=== PATIENT | female | born 1970 | race Caucasian/White ===

== ENCOUNTER → 2017-12-31 | Outpatient (CLI) | payer MEDICAID ==
[2017-12-31 11:29] LABS: ALT 20 U/L (9-52); AST 19 U/L (14-36); Albumin 4.4 g/dL (3.5-5.0); Alkaline Phosphatase 56 U/L (38-126); Anion Gap 8 mmol/L; Blood Urea Nitrogen 18 mg/dL (7-17); C Reactive Protein <5.0 mg/L (<10.0); Calcium 9.4 mg/dL (8.4-10.2); Carbon Dioxide 27 mmol/L (22-30); Chloride 107 mmol/L (98-107); Cholesterol 237 mg/dL (<200); Glucose 86 mg/dL (74-99); HDL Cholesterol 74 mg/dL (40-60); LDL Cholesterol,Calculated 148 mg/dL (0-99); Potassium 4.5 mmol/L (3.5-5.1); Sodium 142 mmol/L (137-145); Total Bilirubin 0.4 mg/dL (0.2-1.3); Total Protein 6.7 g/dL (6.3-8.2); Triglycerides 77 mg/dL (<150)
[2017-12-31 11:46] LABS: Basophils # (A) 0.1 k/uL (0-0.2); Basophils % (A) 1 %; Eosinophils % (A) 1 %; HCT 37.7 % (34.0-46.0); HGB 12.6 gm/dL (11.4-16.0); Lymphocytes # (A) 1.5 k/uL (1.0-4.8); Lymphocytes % (A) 21 %; MCHC 33.3 g/dL (31.0-37.0); MCV 87.1 fL (80.0-100.0); Mean Platelet Volume 7.2; Monocytes # (A) 0.5 k/uL (0-1.0); Monocytes % (A) 7 %; Neutrophils # (A) 4.7 k/uL (1.3-7.7); Neutrophils % (A) 68 %; Platelet Count 377 k/uL (150-450); RBC 4.33 m/uL (3.80-5.40); RDW 13.2 % (11.5-15.5); WBC 6.9 k/uL (3.8-10.6)
[2017-12-31 13:19] LABS: Erythrocyte Sedimentation Rate 5 mm/hr (0-20)
[2017-12-31 16:41] LABS: Cyclic Citrullinated Pep IgG NEGATIVE (NEGATIVE)
[2017-12-31 16:51] LABS: Rheumatoid Factor 5 IU/mL (0-15)
== END | disposition home or self-care (01) ==
LOC: LABWHC1 10:42
PROVIDERS: ATTEND Family Medicine
DX: N95.1 Menopausal and female climacteric states (principal); N76.0 Acute vaginitis; I10 Essential (primary) hypertension; R53.82 Chronic fatigue, unspecified; F17.210 Nicotine dependence, cigarettes, uncomplicated; B96.89 Other specified bacterial agents as the cause of diseases classified elsewhere; Z87.898 Personal history of other specified conditions
CPT/HCPCS: 36415; 80053; 80061; 82607; 84439; 84443; 85025; 85652; 86038; 86140; 86200; 86431

== ENCOUNTER → 2019-01-15 | Outpatient (CLI) | payer MEDICAID ==
[2019-01-15 10:57] LABS: Basophils # (A) 0.1 k/uL (0-0.2); Basophils % (A) 1 %; Eosinophils # (A) 0.2 k/uL (0-0.7); Eosinophils % (A) 3 %; Lymphocytes # (A) 1.6 k/uL (1.0-4.8); Monocytes # (A) 0.4 k/uL (0-1.0); RDW 13.5 % (11.5-15.5)
[2019-01-15 15:05] LABS: HCT 38.4 % (34.0-46.0); HGB 12.5 gm/dL (11.4-16.0); Lymphocytes % (A) 29 %; MCH 29.3 pg (25.0-35.0); MCHC 32.6 g/dL (31.0-37.0); MCV 90.1 fL (80.0-100.0); Mean Platelet Volume 8.3; Monocytes % (A) 7 %; Neutrophils # (A) 3.2 k/uL (1.3-7.7); Neutrophils % (A) 58 %; Platelet Count 400 k/uL (150-450); RBC 4.26 m/uL (3.80-5.40); WBC 5.6 k/uL (3.8-10.6)
[2019-01-15 16:15] LABS: Albumin 4.8 g/dL (3.80-4.90); Albumin/Globulin Ratio 2.82 (1.60-3.17); Anion Gap 3.5 mmol/L (4.00-12.00); Calcium 9.5 mg/dL (8.7-10.3); Carbon Dioxide 27.5 mmol/L (21.6-31.8); Globulin 1.7 g/dL (1.6-3.3); LDL Cholesterol,Calculated 123.4 mg/dL (0.0-131.0); Potassium 4.6 mmol/L (3.5-5.5); Total Bilirubin 0.4 mg/dL (0.3-1.2); Total Protein 6.5 g/dL (6.2-8.2); VLDL Calculation 14.6 mg/dL (5.00-40.00)
[2019-01-15 16:24] LABS: T4, Free (Free Thyroxine) 1.1 ng/dL (0.80-1.80)
== END | disposition home or self-care (01) ==
LOC: LABWHC1 09:59
PROVIDERS: ATTEND Family Medicine
DX: Z00.00 Encounter for general adult medical examination without abnormal findings (principal); I10 Essential (primary) hypertension; K75.9 Inflammatory liver disease, unspecified
CPT/HCPCS: 36415; 80053; 80061; 82672; 83001; 84439; 84443; 85025

== ENCOUNTER 2019-04-08 08:53 | Day surgery (SDC) | payer MEDICAID ==
[2019-04-08 09:17] VITALS: TEMP 97.4
[2019-04-08] MEDS ORDERED: LACTATED RINGERS 1,000 ML IV ONE (09:17)
[2019-04-08] MEDS ORDERED: LIDOCAINE 1% 20 ML VIAL (10MG/ML) FOR IV START INTRADERMA ONE (09:23)
--- NOTE | 2019-04-08 09:31 | P.CONS ---
History of Present Illness - Reason for Consult Consult date: 04/08/19 - Chief Complaint Lower back and right leg pain - History of Present Illness This is a 48-year-old lady with recent history of lower back pain with radiation to the right lower extremity which started after work injury. The pain radiates mostly to the knee level however sometimes it goes to the mid calf area. The patient denies any numbness or tingling in the lower extremity and denies any weakness. The pain gets worse by ambulation and improves by laying down in bed. She was seen by an orthopedic surgeon who recommended lumbar epidural steroid injection at the L5-S1 level and physical therapy. Her lumbar spine MRI shows multiple levels of disc herniation with neural foraminal stenosis mostly at the L3 4 and L5-S1 levels. Review of Systems Cardiovascular: Denies chest pain, Denies shortness of breath Respiratory: Denies cough Gastrointestinal: Denies abdominal pain, Denies diarrhea, Denies nausea, Denies vomiting Musculoskeletal: Denies myalgias Neurological: Reports as per HPI Past Medical History Past Medical History: Hypertension, Liver Disease Additional Past Medical History / Comment(s): migraines, occ.palpitations, hx ulcer, gallstones, pancreatitis, autoimmune hepatitis. lacunar stroke History of Any Multi-Drug Resistant Organisms: None Reported Past Surgical History: Breast Surgery Additional Past Surgical History / Comment(s): exploratory laparoscopy, liver biopsy Past Anesthesia/Blood Transfusion Reactions: Motion Sickness Past Psychological History: Anxiety, Depression Smoking Status: Light tobacco smoker Past Alcohol Use History: None Reported Past Drug Use History: None Reported - Past Family History Mother Family Medical History: Cancer Medications and Allergies Home Medications Medication Instructions Recorded Confirmed Type Losartan Potassium [Cozaar] 100 mg PO DAILY 04/08/19 04/08/19 History PARoxetine HCL [Paxil] 10 mg PO DAILY 04/08/19 04/08/19 History tiZANidine [Zanaflex] 4 mg PO Q6HR PRN 04/08/19 04/08/19 History Allergies Allergy/AdvReac Type Severity Reaction Status Date / Time Tetanus Vaccines and Toxoid Allergy Severe Swelling Verified 04/08/19 09:06 [Tetanus Vaccines & Toxoid] methyldopa [From Aldomet] Allergy effected Verified 04/08/19 09:06 liver methyldopate HCl Allergy effected Verified 04/08/19 09:06 [From Aldomet] liver valsartan Allergy Chest Pain Verified 04/08/19 09:06 lisinopril AdvReac Cough Verified 04/08/19 09:06 Physical Exam Vitals: Vital Signs Temp Pulse Resp BP Pulse Ox 04/08/19 09:16 97.4 F L 78 16 152/91 98 Intake and Output 04/07/19 04/08/19 04/08/19 22:59 06:59 14:59 Other: Weight 67.84 kg - Constitutional General appearance: average body habitus - EENT Eyes: EOMI - Respiratory Respiratory: bilateral: CTA - Cardiovascular Rhythm: regular - Neurologic Muscle strength exam of the lower extremities showed normal and symmetrical strength. Straight leg raising test negative bilaterally. The patient has mild tenderness in the lumbar paravertebral area on the right side. Neurologic: CNII-XII intact - Psychiatric Psychiatric: A&O x's 3, appropriate affect, intact judgment & insight Assessment and Plan Plan: This is a 48-year-old lady with what seems to be right lumbar radiculitis due to neuroforaminal stenosis and lumbar disc herniation. The patient may benefit from getting lumbar epidural steroid injection under fluoroscopic guidance. Patient was referred to our clinic by her orthopedic surgeon to perform lumbar epidural steroid injection at the L5-S1 level under fluoroscopic guidance. The procedure was explained to the patient and her questions were answered. I thank you for the referral.
--- NOTE | 2019-04-08 09:43 | P.PCN ---
Date of Procedure: 04/08/19 Surgeon: Rony Carbajal Pathology: none sent Condition: stable Disposition: PACU Description of Procedure: PREOPERATIVE DIAGNOSIS: 1-Lumbar radiculopathy due to disc herniation and neural foraminal stenosis 2- Lumber Degenerative Disc Diseases. POSTOPERATIVE DIAGNOSIS: Same as above PROCEDURE 1. Lumbar epidural steroid injection under fluoroscopic guidance at the L5-S1 level in the right paramedian approach 2. Lumbar epidurogram. ANESTHESIA: Local with 1% lidocaine; and IV moderate conscious sedation with Versed and fentanyl EBL: Minimal PROCEDURE INDICATION: The patient with low back pain and radiculitis symptoms unresponsive to conservative treatment. Fluoroscopy was used to optimize visualization of the needle placement and to maximize safety. PROCEDURE DESCRIPTION / TECHNIQUE: The patient was seen and identified in the preoperative area. Risks, benefits, complications including but not limited to infections ,bleeding ,allergic reaction to the medications ,nerve damage and not complete pain relief , and alternatives were discussed with the patient. The patient agreed to proceed with the procedure and signed the consent. IV was started, and vital signs were stable. Patient was taken to the OR and time out was completed. The patient was placed in the prone position on procedure table and a pillow was placed under the abdomen to reduce lumbar lordosis. The lumbosacral area was prepped and draped in the usual sterile fashion with ChloraPrep.Patient was closely monitored during the procedure. Conscious sedation was used during the procedure to decrease patients anxiety. Vital signs were monitered during the entire procedure. Using anterior-posterior fluoroscopy, the L5-S1 interlaminar space was identified and the skin over this site was marked and then infiltrated with 1% lidocaine subcutaneously. Subsequently, a 20-gauge Tuohy epidural needle was inserted and advanced toward the epidural space using the Loss of resistance to air technique and guided by AP and lateral fluoroscopy. The correct needle position in the epidural space was verified with the injection of 1 mL of the water soluble contrast dye Omnipaque 180 contrast and observing an excellent epidurogram with the epidural spread of the dye, after negative aspiration for blood and CSF and in the absence of paresthesias. Again after negative aspiration, a 8 ml mixture containing 80 mg of Kenalog and 5 ml of preservative free Normal Saline, and 2 ml of preservative free ropivacaine 0.5% solution was injected and a washout of epidurogram was seen. Needle was withdrawn intact, sk in was cleansed, and bandages were applied. patient tolerated procedure well and was transferred to PACU in stable condition. COMPLICATIONS: None
[2019-04-08] MEDS ORDERED: IV FLUID CONTINUATION 1,000 ML IV ONE (09:48)
[2019-04-08 09:53] VITALS: RESP 18
[2019-04-08 10:24] VITALS: BP 145/89; PULSE 78
--- NOTE | 2019-04-08 11:05 | FL ---
Fluoroscopy HISTORY: Pain 4 seconds fluoroscopy time supplied to the referring clinician. 2 intraoperative C-arm images docume nt the procedure. See dictated report from anesthesia.
== END 2019-04-08 10:24 | disposition home or self-care (01) ==
LOC: ORPAIN 08:53
PROVIDERS: ATTEND Anesthesiology
DX: M51.16 Intervertebral disc disorders with radiculopathy, lumbar region (principal); M48.061 Spinal stenosis, lumbar region without neurogenic claudication; I10 Essential (primary) hypertension; K76.9 Liver disease, unspecified; G43.909 Migraine, unspecified, not intractable, without status migrainosus; F41.9 Anxiety disorder, unspecified; F32.9 Major depressive disorder, single episode, unspecified; K75.4 Autoimmune hepatitis; K85.90 Acute pancreatitis without necrosis or infection, unspecified; R00.2 Palpitations; F17.200 Nicotine dependence, unspecified, uncomplicated; Z86.73 Personal history of transient ischemic attack (TIA), and cerebral infarction without residual deficits; Z79.899 Other long term (current) drug therapy; Z88.7 Allergy status to serum and vaccine; Z88.8 Allergy status to other drugs, medicaments and biological substances; Z80.9 Family history of malignant neoplasm, unspecified
CPT/HCPCS: 62323; 81025; J2250; J3301; J3010; Q9966

== ENCOUNTER 2019-04-22 07:28 | Day surgery (SDC) | payer MEDICAID ==
[2019-04-17 11:09] VITALS: BMI 24.2
[~2019-04-22 07:28] MED LIST: LACTATED RINGERS 1,000 ML IV SCH
[2019-04-22] MEDS ORDERED: LACTATED RINGERS 1,000 ML IV ONE (07:40)
[2019-04-22] MEDS ORDERED: IV FLUID CONTINUATION 1,000 ML IV ONE (08:38)
[2019-04-22 08:42] VITALS: RESP 18
[2019-04-22 08:43] VITALS: TEMP 97.9
--- NOTE | 2019-04-22 08:46 | P.PCN ---
Date of Procedure: 04/22/19 Procedure(s) Performed: 1-Lumbar radiculopathy due to disc herniation and neural foraminal stenosis 2- Lumber Degenerative Disc Diseases. POSTOPERATIVE DIAGNOSIS: Same as above PROCEDURE 1. Lumbar epidural steroid injection under fluoroscopic guidance at the L5-S1 level in the right paramedian approach 2. Lumbar epidurogram. ANESTHESIA: Local with 1% lidocaine; and IV moderate conscious sedation with Versed and fentanyl EBL: Minimal PROCEDURE INDICATION: The patient with low back pain and radiculitis symptoms unresponsive to conservative treatment. Fluoroscopy was used to optimize visualization of the needle placement and to maximize safety. PROCEDURE DESCRIPTION / TECHNIQUE: The patient was seen and identified in the preoperative area. Risks, benefits, complications including but not limited to infections ,bleeding ,allergic reaction to the medications ,nerve damage and not complete pain relief , and alternatives were discussed with the patient. The patient agreed to proceed with the procedure and signed the consent. IV was started, and vital signs were sta ble. Patient was taken to the OR and time out was completed. The patient was placed in the prone position on procedure table and a pillow was placed under the abdomen to reduce lumbar lordosis. The lumbosacral area was prepped and draped in the usual sterile fashion with ChloraPrep.Patient was closely monitored during the procedure. Conscious sedation was used during the procedure to decrease patients anxiety. Vital signs were monitered during the entire procedure. Using anterior-posterior fluoroscopy, the L5-S1 interlaminar space was identified and the skin over this site was marked and then infiltrated with 1% lidocaine subcutaneously. Subsequently, a 20-gauge Tuohy epidural needle was inserted and advanced toward the epidural space using the Loss of resistance to air technique and guided by AP and lateral fluoroscopy. The correct needle position in the epidural space was verified with the injection of 1 mL of the water soluble contrast dye Omnipaque 180 contrast and observing an excellent epidurogram with the epidural spread of the dye, after negative aspiration for blood and CSF and in the absence of paresthesias. Again after negative aspiration, a 8 ml mixture containing 80 mg of Depomedrol and 5 ml of preservative free Normal Saline, and 2 ml of preservative free lidocaine 1% solution was injected and a washout of epidurogram was seen. Needle was withdrawn intact, skin was cleansed, and bandages were applied. patient tolerated procedure well and was transferred to PACU in stable condition. COMPLICATIONS: None
[2019-04-22] MEDS ORDERED: KETOROLAC 30 MG/ML 1 ML VIAL IVP ONE (09:00)
[2019-04-22 09:07] VITALS: BP 168/97; PULSE 83
--- NOTE | 2019-04-22 11:05 | FL ---
EXAMINATION TYPE: FL guided pain mgmt statistic DATE OF EXAM: 04/22/2019 HISTORY: Flouroscopy time 3 seconds of fluoroscopy provided. IMPRESSION: 1. Fluoroscopy time.
== END 2019-04-22 09:25 | disposition home or self-care (01) ==
LOC: ORPAIN 07:28
PROVIDERS: ATTEND Anesthesiology
DX: M51.16 Intervertebral disc disorders with radiculopathy, lumbar region (principal); M48.061 Spinal stenosis, lumbar region without neurogenic claudication; Z88.7 Allergy status to serum and vaccine; Z88.8 Allergy status to other drugs, medicaments and biological substances
CPT/HCPCS: 81025; 62323; J2250; J1030; J1885; Q9966

== ENCOUNTER → 2019-06-02 | Outpatient (CLI) | payer MEDICAID ==
[2019-06-02 13:57] VITALS: BP 152/92; PULSE 78; RESP 16
--- NOTE | 2019-06-02 18:59 | P.PAINPG ---
Subjective Progress Note Date: 06/02/19 This is a follow-up visit for this 48-year-old female with a series of severe low back pain with radiation to the right lower extremity, associated with numbness and tingling sensation patient diagnosed with lumbar radiculopathy, and also she had lumbar herniated disc disease and lumbar foraminal stenosis, patient had the lumbar epidural steroid injection 2 at the L5-S1 levels, patient had significant improvement of her symptoms after the injection, but she continued to have some residual numbness and pain in the right lower extremity she denies any motor or sensory deficit, she denies any fever or night sweats and there is no change in the bowel movement or urination Objective - Vital Signs Vital signs: Vital Signs Temp Pulse 78 06/02/19 13:48 Resp 16 06/02/19 13:48 BP 152/92 06/02/19 13:48 Pulse Ox 99 06/02/19 13:48 Intake & Output 06/01/19 06/02/19 06/02/19 18:59 06:59 18:59 Weight 68.039 kg - Exam Physical Examinations : -Constitutiona : Cooperative , not in acute distress . -HEENT : nech : supple , no Lymphadenopathy , normal thyroid size . eyes : no ptosis , no icterus, no photophobia . ENT : normal of hearing , normal oropharynx , no Thrush . - Respiratory : Chest clear to auscultations Bilaterally , no wheezing , no Rhonchi . - Cardiovascula : regular rate and rhythem , S1 , S2 , no S3 , no S4. - Gastrointestina : abdomen soft no tenderness , bowel sounds , no organomegally . - Genitourinary : Defferred . - neurologic : Cranial nerve II to XII intact , no focal neurological deffecit . -psychatric : alert , oriented X 3 , appropriate affect , intact judgment and insight . -Lymphatic : no Lymphadenopathy . - musculoskeltal : Lumber spine moter stegnth lower extremities ,thigh and legs 5/5 Right side , 5/5 Left side Normal sensation in the lower extremities deep tendon reflexes : normal Knee Jerk , normal ankle Jerk positive lumber facet Loading Test on the right Range of motion of the lumbar spine Flexion 60 degrees, extension 30 degrees strait leg raising test negative bilaterally Fabere test negative bilaterally Assessment and Plan Plan: Assessment and plan= lumbar radiculopathy, lumbar disc herniation , lumbar foraminal stenosis, lumbar spondylosis with lumbar facet arthropathy Status post lumbar epidural steroid injections 2 with good results Patient could benefit from a right-sided transforaminal epidural steroid injection at L5-S1, procedure risk and benefits and alternatives discussed with the patient and she agreed with the preceding Time with Patient: Less than 30 PQRS Measure Charge Sheet Measure #130: Documentation of Current Meds in Medical Chart: Patient's medications documented in chart Measure #226: Tobacco Use: Screen & Cessation Intervention: Pt screened for tobacco use AND intervention given Measure #111: Pneumonia Vaccination: Pneumococcal vaccine administered or previously received Measure #47: Advance Care Plan: Advance care planning discussed & documented, pt chose/unable to give Measure #412: Opioid Treatment Agreement: No documentation of signed opioid treatment agreement Measure #408: Opioid Therapy Follow-up Evaluation: Patient had NO f/u eval minimum every 3 months during opioid therapy Measure #317: Preventitive Care & Scrn High Bld Press & F/U: Pre-hypertensive or hypertensive BP documented, pt will f/u with PCP Measure #128: Body Mass Index (BMI) Screening & Follow-up: BMI documented within normal parameters Measure #131: Pain Assessment & Follow-up: Pain positive & plan documented, Follow-up scheduled Measure #431: Unhealthy Alcohol Use Preventative Care & Scrn: Patient not identified as an unhealthy alcohol user PQRS Narrative: Smoking Status Light tobacco smoker Blood Pressure 152/92 Pain Intensity [Lower Back] 6 Scale Used Numeric (1 - 10) Hx Alcohol Use (MH) Yes Home Medications: Ambulatory Orders Losartan Potassium [Cozaar] 100 mg PO DAILY 04/08/19 PARoxetine HCL [Paxil] 12.5 mg PO DAILY 04/08/19 Ibuprofen/Diphenhydramine Cit [Motrin Pm Caplet] 1 each PO DAILY 04/17/19 Gabapentin [Neurontin] 2 tab PO BID 06/02/19 Controlled Substance Measures - Controlled Substance Measures Is patient prescribed a controlled substance at discharge?: No
== END | disposition home or self-care (01) ==
LOC: PNWHC3 12:57
PROVIDERS: ATTEND Specialist
DX: M48.061 Spinal stenosis, lumbar region without neurogenic claudication (principal); M51.16 Intervertebral disc disorders with radiculopathy, lumbar region; M47.26 Other spondylosis with radiculopathy, lumbar region; M46.96 Unspecified inflammatory spondylopathy, lumbar region; F17.200 Nicotine dependence, unspecified, uncomplicated; Z79.899 Other long term (current) drug therapy
CPT/HCPCS: 99211

== ENCOUNTER 2019-07-02 06:05 | Day surgery (SDC) | payer MEDICAID ==
[2019-06-29 13:21] VITALS: BMI 24.2
[2019-07-02 06:37] VITALS: TEMP 97.9
[2019-07-02] MEDS ORDERED: IV FLUID CONTINUATION 1,000 ML IV ONE (07:27)
--- NOTE | 2019-07-02 07:28 | P.PCN ---
Date of Procedure: 07/02/19 Procedure(s) Performed: PREOPERATIVE DIAGNOSIS:1- Lumbar radiculopathy in right L5-1 distribution. 2- lumbar disc herniation. 3-lumbar spondylosis with lumbar facet arthropathy POSTOPERATIVE DIAGNOSIS: Same as preop diagnosis PROCEDURE 1. Transforaminal epidural steroid injection under fluoroscopic guidance at right L5-S1 . (Fluoroscopy images stored on file in the radiology Department ) 2. Lumbar epidurogram : ANESTHESIA: Local with 1% lidocaine 3 ml , moderate sedation with intravenous Versed 2 mg and fentanyle 100 micrograms EBL: Minimal PROCEDURE INDICATION: The patient with low back pain and radiculopathy symptoms unresponsive to conservative treatment. PROCEDURE DESCRIPTION / TECHNIQUE: The patient was seen and identified in the preoperative area. Risks, benefits, complications, and alternatives were discussed with the patient. The patient agreed to proceed with the procedure and signed the consent. IV was started, and vital signs were stable. Patient was taken to the OR and time out was completed. The patient was placed in the prone position on procedure table and a pillow was placed under the abdomen to reduce lumbar lordosis. The lumbosacral area was prepped and draped in the usual sterile fashion. Critical pause was taken. Vital signs were closely monitored during the procedure. Conscious sedation was used during the procedure to decrease patient s anxiety. Using oblique fluoroscopy, the chin of the `IsaiahYasmany dog at right L5-S1 level was identified, and the skin and deeper tissues just below was localized with 1% lidocaine. Subsequently, a 25-gauge 3.5-inch spinal needle was advanced under a tunneled view fluoroscopic guidance just underneath the chin of the `Maryany dog at the right L5-S1 . Under lateral fluoroscopy, the needle was then advanced to the posterior border of the Right L5-S1 interforaminal space. After negative aspiration of CSF and blood and with no paresthesias, 1 mL Isovue 200 contrast dye was injected excellent epidurogram and outlining of the nerve root Subsequently, 3 mL of block solution containing 80 mg Depo-Medrol and 2 mL of Lidocaine 1% was injected. At the end of the procedure, skin was cleansed, and bandages were applied. COMPLICATIONS:none DISPOSITION / PLANS: The patient was placed in a supine position and transferred to the recovery area in a stable condition for observation. There was no evidence of lower extremity motor or sensory deficit after the procedure. Patient was discharged from the recovery room after meeting discharge criteria. Home discharge instructions were given to the patient by the staff. The patient was reexamined prior to discharge.
[2019-07-02 07:47] VITALS: RESP 16
[2019-07-02 08:07] VITALS: BP 125/74; PULSE 60
--- NOTE | 2019-07-02 11:26 | FL ---
Fluoroscopy HISTORY: Pain 11 seconds fluoroscopy time supplied to the referring clinician. 2 intraoperative C-arm images docum ent the procedure. See dictated report from anesthesia.
== END 2019-07-02 08:08 | disposition home or self-care (01) ==
LOC: ORPAIN 06:05
PROVIDERS: ATTEND Specialist
DX: M51.16 Intervertebral disc disorders with radiculopathy, lumbar region (principal); M47.26 Other spondylosis with radiculopathy, lumbar region; I10 Essential (primary) hypertension; Z88.7 Allergy status to serum and vaccine; Z88.8 Allergy status to other drugs, medicaments and biological substances
CPT/HCPCS: 81025; 64483; J2250; J1030; J3010; Q9966; 99152

== ENCOUNTER → 2019-07-30 | Day surgery (SDC) | payer MEDICAID ==
[2019-07-28 12:53] VITALS: BMI 24.2
[~2019-07-30] MED LIST changes: +IV FLUID CONTINUATION 750 ML IV ONE
[2019-07-30 07:20] VITALS: RESP 18; TEMP 97.5
--- NOTE | 2019-07-30 08:28 | P.PCN ---
Date of Procedure: 07/30/19 Procedure(s) Performed: DESCRIPTION OF PROCEDURE(S): PREOPERATIVE DIAGNOSIS: Lumbar radicular pain POSTOPERATIVE DIAGNOSIS: Lumbar radicular pain PROCEDURE 1. Transforaminal epidural steroid injection under fluoroscopic guidance at right L5-S1 2. Lumbar epidurogram ANESTHESIA: Local with 1% lidocaine 3 ml ; IV sedation with Versed 2 mg and fentanyl 100 micrograms. PROCEDURE INDICATION: The patient with low back pain and radiculopathy symptoms unresponsive to conservative treatment. PROCEDURE DESCRIPTION / TECHNIQUE: The patient was seen and identified in the preoperative area. Risks, benefits, complications, and alternatives were discussed with the patient. The patient agreed to proceed with the procedure and signed the consent. IV was started, and vital signs were stable. Patient was taken to the OR and time out was completed. The patient was placed in the prone position on procedure table and a pillow was placed under the abdomen to reduce lumbar lordosis. The lumbosacral area was prepped and draped in the usual sterile fashion. Vital signs were closely monitored during the procedure. Conscious sedation was used. Using oblique fluoroscopy, the chin of the ``Yasmany dog and the skin and deeper tissues just below was localized with 1% lidocaine. Subsequently, a 22- gauge 3.5-inch spinal needle was advanced under a tunneled view fluoroscopic guidance just underneath the chin of the ``Yasmany dog . Under lateral fluoroscopy, the needle was then advanced to the posterior border of the foramen. After negative aspiration of CSF and blood and with no paresthesias, 1 mL of Omnipaque-240 contrast dye was injected and there was no evidence of intravascular injection. The injectate solution of 80 mg of depomedrol and 2 cc of 1% preservative free lidocaine was injected. The needle was withdrawn intact. At the end of the procedure, skin was cleansed, and bandages were applied. Images were saved to radiology COMPLICATIONS: None COMMENTS: DISPOSITION / PLANS: The patient was placed in a supine position and transferred to the recovery area in a stable condition for observation. There was no evidence of lower extremity motor or sensory deficit after the procedure. Patient was discharged from the recovery room after meeting discharge criteria. Home discharge instructions were given to the patient by the staff. The patient was reexamined prior to discharge. She will be seen in clinic for follow-up
[2019-07-30 08:48] VITALS: BP 151/97; PULSE 77
--- NOTE | 2019-07-30 09:20 | FL ---
EXAMINATION TYPE: FL guided pain mgmt statistic DATE OF EXAM: 07/30/2019 HISTORY: Flouroscopy time 10 seconds of fluoroscopy provided. IMPRESSION: 1. Fluoroscopy time.
== END ==
LOC: ORPAIN 06:52
PROVIDERS: ATTEND Student in an Organized Health Care Education/Training Program
DX: M54.16 Radiculopathy, lumbar region (principal)
CPT/HCPCS: 64483; J2250; J1030; J3010; Q9966

== ENCOUNTER 2019-12-20 09:20 | Emergency (ER) | payer MEDICAID ==
[2019-12-20 09:33] VITALS: RESP 18
[2019-12-20] MEDS ORDERED: SODIUM CHLORIDE 0.9% 1,000 ML IV STA (09:58)
--- NOTE | 2019-12-20 10:18 | ED ---
URI HPI - General Chief Complaint: Upper Respiratory Infection Stated Complaint: Pneumonia Time Seen by Provider: 12/20/19 09:45 Source: patient Mode of arrival: ambulatory Limitations: no limitations - History of Present Illness Initial Comments: Patient is a 49-year-old female presenting to emergency Department with complaints of upper respiratory type symptoms have been ongoing for approximately 3 weeks. Patient states she has completed 2 separate Z-Paks and is currently on day 6 of of Lev[employer]virt[employer] voorhees for possible walking pneumonia. Patient states she's been having intermittent fevers, cough with mild sputum, shortness of breath and severe fatigue. She denies history of asthma. She denies vomiting, diarrhea. She is having regular bowel movements. She denies any urinary complaints. She denies chest pain. She has no other complaints at this time. Upon arrival to the ER, BP is elevated at 180/95, rest of vitals are normal. Patient states she did take her hypertension medication this morning. - Related Data Home Medications Medication Instructions Recorded Confirmed Losartan Potassium [Cozaar] 100 mg PO DAILY 04/08/19 07/30/19 Ibuprofen/Diphenhydramine Cit 1 each PO HS 04/17/19 07/30/19 [Motrin Pm Caplet] Gabapentin [Neurontin] 200 tab PO BID PRN 06/02/19 07/30/19 Soy Isofla/Blk Cohosh/Mag Bark 155 mg PO DAILY 07/28/19 07/28/19 [Estroven 155 mg Capsule] buPROPion XL [Wellbutrin Xl] 150 mg PO DAILY 07/28/19 07/28/19 Previous Rx's Medication Instructions Recorded predniSONE [Deltasone] 20 mg PO BID 5 Days #10 tab 12/20/19 Allergies Allergy/AdvReac Type Severity Reaction Status Date / Time Tetanus Vaccines and Toxoid Allergy Severe Anaphylaxis Verified 07/28/19 12:36 [Tetanus Vaccines & Toxoid] amlodipine [From Norvasc] Allergy hypertension, Verified 07/28/19 12:36 high heart rate methyldopa [From Aldomet] Allergy effected Verified 07/28/19 12:36 liver methyldopate HCl Allergy effected Verified 07/28/19 12:36 [From Aldomet] liver valsartan Allergy Chest Pain Verified 07/28/19 12:36 lisinopril AdvReac Cough Verified 10/08/19 12:36 Review of Systems ROS Statement: Those systems with pertinent positive or pertinent negative responses have been documented in the HPI. ROS Other: All systems not noted in ROS Statement are negative. Past Medical History Past Medical History: CVA/TIA, Hypertension, Liver Disease, Musculoskeletal Disorder, Pneumonia Additional Past Medical History / Comment(s): Hx Migraines, occ palpitations, hx gastric ulcer, gallstones, pancreatitis, autoimmune hepatitis. lacunar stroke noted on scan. Spinal stenosis, 2 herniated discs. History of Any Multi-Drug Resistant Organisms: None Reported Past Surgical History: Breast Surgery, Cholecystectomy Additional Past Surgical History / Comment(s): Exploratory laparoscopy, liver biopsy, Breast Augmentation, PAIN CLINIC PROCEDURES Past Anesthesia/Blood Transfusion Reactions: Motion Sickness Past Psychological History: Anxiety, Depression Smoking Status: Current every day smoker Past Alcohol Use History: None Reported Past Drug Use History: None Reported - Past Family History Mother Family Medical History: Cancer General Exam - General Exam Comments Initial Comments: GENERAL: Well-appearing, well-nourished and in no acute distress. HEAD: Atraumatic, normocephalic. EYES: Pupils equal round and reactive to light, extraocular movements intact, sclera anicteric, conjunctiva are normal. ENT: TMs normal, nares patent, oropharynx clear without exudates. Moist mucous membranes. NECK: Normal range of motion, supple without lymphadenopathy or JVD. LUNGS: Breath sounds clear to auscultation bilaterally and equal. No wheezes rales or rhonchi. HEART: Regular rate and rhythm without murmurs, rubs or gallops. ABDOMEN: Soft, nontender, normoactive bowel sounds. No guarding, no rebound. No masses appreciated. : Deferred EXTREMITIES: Normal range of motion, no pitting or edema. No clubbing or cyanosis. NEUROLOGICAL: Normal speech, normal gait. PSYCH: Normal mood, normal affect. SKIN: Warm, Dry, normal turgor, no rashes or lesions noted. Limitations: no limitations Course Vital Signs 12/20/19 12/20/19 09:30 11:57 Temperature 98.1 F 97.8 F Pulse Rate 50 L 78 Respiratory 18 18 Rate Blood Pressure 180/95 121/78 O2 Sat by Pulse 97 98 Oximetry Medical Decision Making - Medical Decision Making Patient is a 49-year-old female presenting with URI-type symptoms for the last 2-3 weeks. She has completed 2 courses of azithromycin as well as currently on Levaquin, day 5 of 7. Vitals are stable. Exam is unremarkable. Chest x-ray shows no acute abnormalities. Lab work is unremarkable. [place] is negative. Patient was given fluids and a dose of steroids. I recommended her continuing with antibiotics and to follow up with PCP. She will be given prescription for outpatient steroids. She is stable for discharge at this time. She is in agreement with this plan of care. Return parameters were discussed with the patient she verbalized understanding. Case discussed with Dr. Alexander. - Lab Data Result diagrams: 12/20/19 10:12 12/20/19 10:12 Lab Results 12/20/19 12/20/19 12/20/19 Range/Units 10:12 10:12 10:12 WBC 8.8 (3.8-10.6) k/uL RBC 5.00 (3.80-5.40) m/uL Hgb 14.9 (11.4-16.0) gm/dL Hct 44.0 (34.0-46.0) % MCV 87.9 (80.0-100.0) fL MCH 29.7 (25.0-35.0) pg MCHC 33.8 (31.0-37.0) g/dL RDW 12.4 (11.5-15.5) % Plt Count 376 (150-450) k/uL Neutrophils % 73 % Lymphocytes % 19 % Monocytes % 5 % Eosinophils % 1 % Basophils % 1 % Neutrophils # 6.4 (1.3-7.7) k/uL Lymphocytes # 1.6 (1.0-4.8) k/uL Monocytes # 0.4 (0-1.0) k/uL Eosinophils # 0.1 (0-0.7) k/uL Basophils # 0.1 (0-0.2) k/uL Sodium 139 (137-145) mmol/L Potassium 4.5 (3.5-5.1) mmol/L Chloride 107 (98-107) mmol/L Carbon Dioxide 25 (22-30) mmol/L Anion Gap 7 mmol/L BUN 15 (7-17) mg/dL Creatinine 0.93 (0.52-1.04) mg/dL Est GFR (CKD-EPI)AfAm 84 (>60 ml/min/1.73 sqM) Est GFR (CKD-EPI)NonAf 72 (>60 ml/min/1.73 sqM) Glucose 88 (74-99) mg/dL Calcium 9.8 (8.4-10.2) mg/dL Total Bilirubin 0.7 (0.2-1.3) mg/dL AST 23 (14-36) U/L ALT 17 (4-34) U/L Alkaline Phosphatase 99 (38-126) U/L Total Protein 7.2 (6.3-8.2) g/dL Albumin 4.7 (3.5-5.0) g/dL Urine Color Light Yellow Urine Appearance Clear (Clear) Urine pH 6.5 (5.0-8.0) Ur Specific Pandora 1.004 (1.001-1.035) Urine Protein Negative (Negative) Urine Glucose (UA) Negative (Negative) Urine Ketones Negative (Negative) Urine Blood Negative (Negative) Urine Nitrite Negative (Negative) Urine Bilirubin Negative (Negative) Urine Urobilinogen <2.0 (<2.0) mg/dL Ur Leukocyte Esterase Small H (Negative) Urine RBC 1 (0-5) /hpf Urine WBC 3 (0-5) /hpf Ur Squamous Epith Cells 5 H (0-4) /hpf Urine Bacteria Rare H (None) /hpf Urine HCG, Qual (Not Detectd) Heterophile Antibody (Negative) 12/20/19 12/20/19 Range/Units 10:12 10:12 WBC (3.8-10.6) k/uL RBC (3.80-5.40) m/uL Hgb (11.4-16.0) gm/dL Hct (34.0-46.0) % MCV (80.0-100.0) fL MCH (25.0-35.0) pg MCHC (31.0-37.0) g/dL RDW (11.5-15.5) % Plt Count (150-450) k/uL Neutrophils % % Lymphocytes % % Monocytes % % Eosinophils % % Basophils % % Neutrophils # (1.3-7.7) k/uL Lymphocytes # (1.0-4.8) k/uL Monocytes # (0-1.0) k/uL Eosinophils # (0-0.7) k/uL Basophils # (0-0.2) k/uL Sodium (137-145) mmol/L Potassium (3.5-5.1) mmol/L Chloride (98-107) mmol/L Carbon Dioxide (22-30) mmol/L Anion Gap mmol/L BUN (7-17) mg/dL Creatinine (0.52-1.04) mg/dL Est GFR (CKD-EPI)AfAm (>60 ml/min/1.73 sqM) Est GFR (CKD-EPI)NonAf (>60 ml/min/1.73 sqM) Glucose (74-99) mg/dL Calcium (8.4-10.2) mg/dL Total Bilirubin (0.2-1.3) mg/dL AST (14-36) U/L ALT (4-34) U/L Alkaline Phosphatase (38-126) U/L Total Protein (6.3-8.2) g/dL Albumin (3.5-5.0) g/dL Urine Color Urine Appearance (Clear) Urine pH (5.0-8.0) Ur Specific Pand[place] (1.001-1.035) Urine Protein (Negative) Urine Glucose (UA) (Negative) Urine Ketones (Negative) Urine Blood (Negative) Urine Nitrite (Negative) Urine Bilirubin (Negative) Urine Urobilinogen (<2.0) mg/dL Ur Leukocyte Esterase (Negative) Urine RBC (0-5) /hpf Urine WBC (0-5) /hpf Ur Squamous Epith Cells (0-4) /hpf Urine Bacteria (None) /hpf Urine HCG, Qual Not Detected (Not Detectd) Heterophile Antibody Negative (Negative) Disposition Clinical Impression: Upper respiratory tract infection Disposition: HOME SELF-CARE Condition: Stable Instructions (If sedation given, give patient instructions): Upper Respiratory Infection (ED) Additional Instructions: Please return to the Emergency Department if symptoms worsen or any other concerns. Take steroids as prescribed. Follow-up with PCP as symptoms persist. Prescriptions: predniSONE [Deltasone] 20 mg PO BID 5 Days #10 tab Is patient prescribed a controlled substance at d/c from ED?: No Referrals: Bao Lanza MD [Primary Care Provider] - 1-2 days
[2019-12-20 10:26] LABS: Basophils # (A) 0.1 k/uL (0-0.2); Basophils % (A) 1 %; Eosinophils # (A) 0.1 k/uL (0-0.7); Eosinophils % (A) 1 %; HGB 14.9 gm/dL (11.4-16.0); Lymphocytes # (A) 1.6 k/uL (1.0-4.8); Lymphocytes % (A) 19 %; MCH 29.7 pg (25.0-35.0); MCHC 33.8 g/dL (31.0-37.0); MCV 87.9 fL (80.0-100.0); Mean Platelet Volume 7.2; Monocytes # (A) 0.4 k/uL (0-1.0); Monocytes % (A) 5 %; Neutrophils # (A) 6.4 k/uL (1.3-7.7); Neutrophils % (A) 73 %; Platelet Count 376 k/uL (150-450); RDW 12.4 % (11.5-15.5); WBC 8.8 k/uL (3.8-10.6)
[2019-12-20 10:33] LABS: Albumin 4.7 g/dL (3.5-5.0); Appearance,Urine Clear (Clear); Bacteria,Urine Rare /hpf; Bilirubin,Urine Negative (Negative); Blood,Urine Negative (Negative); Calcium 9.8 mg/dL (8.4-10.2); Color,Urine Light Yellow; Glucose,Urine (UA) Negative (Negative); Ketones,Urine Negative (Negative); Leukocyte Esterase,Urine Small (Negative); Nitrite,Urine Negative (Negative); PH, Urine 6.5 (5.0-8.0); Potassium 4.5 mmol/L (3.5-5.1); Protein,Urine Negative (Negative); RBC,Urine 1 /hpf (0-5); Specific Gravity,Urine 1.004 (1.001-1.035); Squamous Epithelial Cell,Urine 5 /hpf (0-4); Total Bilirubin 0.7 mg/dL (0.2-1.3); Total Protein 7.2 g/dL (6.3-8.2); Urobilinogen,Urine <2.0 mg/dL (<2.0); WBC,Urine 3 /hpf (0-5)
--- NOTE | 2019-12-20 10:49 | XR ---
EXAMINATION TYPE: XR chest 2V DATE OF EXAM: 12/20/2019 HISTORY: cough, fatigue. REFERENCE: NONE. FINDINGS: The lungs are overinflated. Nodular opacity in the right upper lobe is believed to represen t the right first rib end. Lungs otherwise clear. Pleural space are clear. The heart is not enlarged. IMPRESSION: COPD.
[2019-12-20] MEDS ORDERED: methylPREDNISolone SOD SUCCI 125 MG/2 ML VIAL IV STA (11:23)
[2019-12-20 12:04] VITALS: BP 121/78; PULSE 78; TEMP 97.8
== END 2019-12-20 12:04 | disposition home or self-care (01) ==
LOC: EC 09:20
DX: I10 Essential (primary) hypertension (principal); J06.9 Acute upper respiratory infection, unspecified; F41.9 Anxiety disorder, unspecified; F32.9 Major depressive disorder, single episode, unspecified; F17.200 Nicotine dependence, unspecified, uncomplicated; Z79.1 Long term (current) use of non-steroidal anti-inflammatories (NSAID); Z79.899 Other long term (current) drug therapy; Z88.7 Allergy status to serum and vaccine; Z88.8 Allergy status to other drugs, medicaments and biological substances; Z86.73 Personal history of transient ischemic attack (TIA), and cerebral infarction without residual deficits; Z87.11 Personal history of peptic ulcer disease; Z87.19 Personal history of other diseases of the digestive system; Z90.49 Acquired absence of other specified parts of digestive tract
CPT/HCPCS: 36415; 80053; 85025; 86308; 81001; 81025; 71046; 96374; 96361; 99285; J2930

== ENCOUNTER 2020-01-04 21:35 | Emergency (ER) | payer MEDICAID ==
[2020-01-04] MEDS ORDERED: SODIUM CHLORIDE 0.9% 1,000 ML IV STA (21:57)
[2020-01-04] MEDS ORDERED: ONDANSETRON 4 MG/2 ML VIAL IVP STA (21:57)
[2020-01-04] MEDS ORDERED: ACETAMINOPHEN TAB 500 MG TAB PO STA (22:17)
--- NOTE | 2020-01-04 22:18 | ED ---
URI HPI - General Chief Complaint: Upper Respiratory Infection Stated Complaint: Vomiting Time Seen by Provider: 01/04/20 21:43 Source: patient Mode of arrival: ambulatory Limitations: no limitations - History of Present Illness Initial Comments: Patient is a 49-year-old female presenting to emergency Department with complaints of acute onset of fever, cough, vomiting. Patient states she was in the ER 2 weeks ago for upper respiratory type symptoms but she did not have a fever. She states she was feeling better for a few days and then the symptoms started today. She denies any sick contacts. She denies any recent travel. She states she has been vomiting on and off throughout the whole day. She did take 600 mg of ibuprofen approximately 2 hours prior to arrival. She denies history of asthma. She has no other complaints at this time. Upon arrival to the ER, patient is febrile to 101.6, tachycardia at 127, 20 respiratory rate, 121/81, 99% on room air. - Related Data Home Medications Medication Instructions Recorded Confirmed Losartan Potassium [Cozaar] 100 mg PO DAILY 04/08/19 07/30/19 Ibuprofen/Diphenhydramine Cit 1 each PO HS 04/17/19 07/30/19 [Motrin Pm Caplet] Gabapentin [Neurontin] 200 tab PO BID PRN 06/02/19 07/30/19 Soy Isofla/Blk Cohosh/Mag Bark 155 mg PO DAILY 07/28/19 07/28/19 [Estroven 155 mg Capsule] buPROPion XL [Wellbutrin Xl] 150 mg PO DAILY 07/28/19 07/28/19 Previous Rx's Medication Instructions Recorded predniSONE [Deltasone] 20 mg PO BID 5 Days #10 tab 12/20/19 Ondansetron Odt [Zofran Odt] 4 mg PO Q8HR PRN #10 tab 01/05/20 Allergies Allergy/AdvReac Type Severity Reaction Status Date / Time Tetanus Vaccines and Toxoid Allergy Severe Anaphylaxis Verified 01/04/20 21:40 [Tetanus Vaccines & Toxoid] amlodipine [From Norvasc] Allergy hypertension, Verified 01/04/20 21:40 high heart rate methyldopa [From Aldomet] Allergy effected Verified 01/04/20 21:40 liver methyldopate HCl Allergy effected Verified 01/04/20 21:40 [From Aldomet] liver valsartan Allergy Chest Pain Verified 01/04/20 21:40 lisinopril AdvReac Cough Verified 01/04/20 21:40 Review of Systems ROS Statement: Those systems with pertinent positive or pertinent negative responses have been documented in the HPI. ROS Other: All systems not noted in ROS Statement are negative. Past Medical History Past Medical History: CVA/TIA, Hypertension, Liver Disease, Musculoskeletal Disorder, Pneumonia Additional Past Medical History / Comment(s): Hx Migraines, occ palpitations, hx gastric ulcer, gallstones, pancreatitis, autoimmune hepatitis. lacunar stroke noted on scan. Spinal stenosis, 2 herniated discs. History of Any Multi-Drug Resistant Organisms: None Reported Past Surgical History: Breast Surgery, Cholecystectomy Additional Past Surgical History / Comment(s): Exploratory laparoscopy, liver biopsy, Breast Augmentation, PAIN CLINIC PROCEDURES Past Anesthesia/Blood Transfusion Reactions: Motion Sickness Past Psychological History: Anxiety, Depression Smoking Status: Current every day smoker Past Alcohol Use History: Occasional Past Drug Use History: None Reported - Past Family History Mother Family Medical History: Cancer General Exam - General Exam Comments Initial Comments: GENERAL: Well-appearing, well-nourished and in no acute distress. HEAD: Atraumatic, normocephalic. EYES: Pupils equal round and reactive to light, extraocular movements intact, sclera anicteric, conjunctiva are normal. ENT: TMs normal, nares patent, oropharynx clear without exudates. Moist mucous me mbranes. NECK: Normal range of motion, supple without lymphadenopathy or JVD. LUNGS: Breath sounds clear to auscultation bilaterally and equal. No wheezes rales or rhonchi. HEART: Tachycardia rate and rhythm without murmurs, rubs or gallops. ABDOMEN: Soft, nontender, normoactive bowel sounds. No guarding, no rebound. No masses appreciated. : Deferred EXTREMITIES: Normal range of motion, no pitting or edema. No clubbing or cyanosis. NEUROLOGICAL: Normal speech, normal gait. PSYCH: Normal mood, normal affect. SKIN: Warm, Dry, normal turgor, no rashes or lesions noted. Limitations: no limitations Course Vital Signs 01/04/20 21:37 Temperature 101.6 F H Pulse Rate 127 H Respiratory 20 Rate Blood Pressure 121/81 O2 Sat by Pulse 99 Oximetry Medical Decision Making - Medical Decision Making Patient is a 49-year-old female presenting with a fever, cough, body aches, as well as vomiting that started today. Patient did arrive febrile 101.6, pulse is 127. Patient's exam is unremarkable, except for tachycardia. No abdominal pain. Influenza is negative. Chest x-ray shows no acute findings. Lab work shows signs of dehydration, no other acute abnormalities. Patient denies having a sore throat. Patient does admit to working at healthcare. Given patient's symptoms as well as possible exposure risk, testing for COVID19 was performed. This test is pending. Patient is in agreement with this plan of care. Patient was given Tylenol in the ER. Her vital signs have stabilized, afebrile, heart rate 92. Patient is stable for discharge. She will be sent home with Zofran as needed for nausea. Patient will continue Tylenol and Motrin for fever control and symptom relief. Patient will self quarantined in her house until the test results. Return parameters were discussed with the patient she verbalized understanding. - Lab Data Result diagrams: 01/04/20 22:41 01/04/20 22:41 Lab Results 01/04/20 01/04/20 01/04/20 Range/Units 21:40 22:41 22:41 WBC 9.7 (3.8-10.6) k/uL RBC 4.50 (3.80-5.40) m/uL Hgb 13.1 (11.4-16.0) gm/dL Hct 39.3 (34.0-46.0) % MCV 87.3 (80.0-100.0) fL MCH 29.2 (25.0-35.0) pg MCHC 33.4 (31.0-37.0) g/dL RDW 12.6 (11.5-15.5) % Plt Count 323 (150-450) k/uL Neutrophils % 82 % Lymphocytes % 9 % Monocytes % 4 % Eosinophils % 3 % Basophils % 0 % Neutrophils # 8.0 H (1.3-7.7) k/uL Lymphocytes # 0.9 L (1.0-4.8) k/uL Monocytes # 0.4 (0-1.0) k/uL Eosinophils # 0.3 (0-0.7) k/uL Basophils # 0.0 (0-0.2) k/uL Sodium 134 L (137-145) mmol/L Potassium 4.1 (3.5-5.1) mmol/L Chloride 104 (98-107) mmol/L Carbon Dioxide 24 (22-30) mmol/L Anion Gap 6 mmol/L BUN 21 H (7-17) mg/dL Creatinine 0.86 (0.52-1.04) mg/dL Est GFR (CKD-EPI)AfAm >90 (>60 ml/min/1.73 sqM) Est GFR (CKD-EPI)NonAf 80 (>60 ml/min/1.73 sqM) Glucose 105 H (74-99) mg/dL Calcium 8.6 (8.4-10.2) mg/dL Total Bilirubin 0.7 (0.2-1.3) mg/dL AST 27 (14-36) U/L ALT 119 H (4-34) U/L Alkaline Phosphatase 117 (38-126) U/L Total Protein 6.3 (6.3-8.2) g/dL Albumin 4.1 (3.5-5.0) g/dL Influenza Type A RNA Not Detected (Not Detectd) Influenza Type B (PCR) Not Detected (Not Detectd) Disposition Clinical Impression: Viral infection Disposition: HOME SELF-CARE Condition: Stable Instructions (If sedation given, give patient instructions): Upper Respiratory Infection (ED) Additional Instructions: Please return to the Emergency Department if symptoms worsen or any other concerns. Continue with Tylenol or Motrin for fever and symptom control. Increase fluid intake. Self quarantine until COVID19 testing is resulted to you. Prescriptions: Ondansetron Odt [Zofran Odt] 4 mg PO Q8HR PRN #10 tab PRN Reason: Nausea Is patient prescribed a controlled substance at d/c from ED?: No Referrals: Bao Lanza MD [Primary Care Provider] - 1-2 days
--- NOTE | 2020-01-04 22:27 | XR ---
EXAMINATION TYPE: XR chest 2V DATE OF EXAM: 01/04/2020 COMPARISON: 12/20/2019 HISTORY: Cough and fever TECHNIQUE: FINDINGS: Heart and mediastinum are normal. Lungs are clear. Diaphragm is normal. Bony thorax appears normal. IMPRESSION: Normal chest. No change.
[2020-01-04 23:00] LABS: Basophils % (A) 0 %; Eosinophils # (A) 0.3 k/uL (0-0.7); Eosinophils % (A) 3 %; HCT 39.3 % (34.0-46.0); HGB 13.1 gm/dL (11.4-16.0); Lymphocytes # (A) 0.9 k/uL (1.0-4.8); Lymphocytes % (A) 9 %; MCH 29.2 pg (25.0-35.0); MCHC 33.4 g/dL (31.0-37.0); MCV 87.3 fL (80.0-100.0); Mean Platelet Volume 7.2; Monocytes # (A) 0.4 k/uL (0-1.0); Monocytes % (A) 4 %; Neutrophils % (A) 82 %; Platelet Count 323 k/uL (150-450); RDW 12.6 % (11.5-15.5); WBC 9.7 k/uL (3.8-10.6)
[2020-01-04 23:10] LABS: ALT 119 U/L (4-34); AST 27 U/L (14-36); African American GFR (CKD) >90 (>60 ml/min/1.73 sqM); Albumin 4.1 g/dL (3.5-5.0); Alkaline Phosphatase 117 U/L (38-126); Anion Gap 6 mmol/L; Blood Urea Nitrogen 21 mg/dL (7-17); Calcium 8.6 mg/dL (8.4-10.2); Carbon Dioxide 24 mmol/L (22-30); Chloride 104 mmol/L (98-107); Glucose 105 mg/dL (74-99); Non-African American GFR(CKD) 80 (>60 ml/min/1.73 sqM); Potassium 4.1 mmol/L (3.5-5.1); Sodium 134 mmol/L (137-145); Total Bilirubin 0.7 mg/dL (0.2-1.3); Total Protein 6.3 g/dL (6.3-8.2)
[2020-01-05] MEDS ORDERED: ONDANSETRON 4 MG ODT STARTER PACK 2 TAB BTL PO STA (00:06)
[2020-01-05 00:12] VITALS: BP 121/78; PULSE 92; RESP 16; TEMP 98.3
== END 2020-01-05 00:12 | disposition home or self-care (01) ==
LOC: EC 21:35
DX: B34.9 Viral infection, unspecified (principal); R00.0 Tachycardia, unspecified; R11.10 Vomiting, unspecified; E86.0 Dehydration; I10 Essential (primary) hypertension; F41.9 Anxiety disorder, unspecified; F32.9 Major depressive disorder, single episode, unspecified; F17.200 Nicotine dependence, unspecified, uncomplicated; Z88.7 Allergy status to serum and vaccine; Z88.8 Allergy status to other drugs, medicaments and biological substances; Z79.1 Long term (current) use of non-steroidal anti-inflammatories (NSAID); Z79.899 Other long term (current) drug therapy; Z86.69 Personal history of other diseases of the nervous system and sense organs; Z86.73 Personal history of transient ischemic attack (TIA), and cerebral infarction without residual deficits
CPT/HCPCS: 36415; 80053; 85025; 87502; 71046; 99284; 96374; 96361; U0002; J2405; S0119

== ENCOUNTER 2020-09-10 10:18 | Inpatient (IN) | payer MEDICAID ==
[2020-09-10] MEDS ORDERED: SODIUM CHLORIDE 0.9% 1,000 ML IV ONE (10:55)
[2020-09-10] MEDS ORDERED: ACETAMINOPHEN TAB 500 MG TAB PO STA (10:55)
[2020-09-10] MEDS ORDERED: SODIUM CHLORIDE 0.9% 500 ML 500 ML IV ONE (10:55)
[2020-09-10] MEDS: SODIUM CHLORIDE 0.9% 1,000 ML IV SCH ×2 (11:13→18:10)
[2020-09-10 11:40] LABS: Basophils # (A) 0.1 k/uL (0-0.2); Basophils % (A) 1 %; Eosinophils # (A) 0.1 k/uL (0-0.7); Eosinophils % (A) 1 %; HGB 15.5 gm/dL (11.4-16.0); Lymphocytes # (A) 1.1 k/uL (1.0-4.8); Lymphocytes % (A) 15 %; MCH 30.2 pg (25.0-35.0); MCHC 34.5 g/dL (31.0-37.0); MCV 87.6 fL (80.0-100.0); Monocytes # (A) 0.4 k/uL (0-1.0); Monocytes % (A) 6 %; Neutrophils # (A) 5.4 k/uL (1.3-7.7); Neutrophils % (A) 76 %; Platelet Count 396 k/uL (150-450); RBC 5.13 m/uL (3.80-5.40); RDW 12.7 % (11.5-15.5); WBC 7.2 k/uL (3.8-10.6)
[2020-09-10 11:51] LABS: Potassium 4.8 mmol/L (3.5-5.1)
[2020-09-10 11:54] LABS: ALT 26 U/L (4-34); AST 29 U/L (14-36); African American GFR (CKD) 89 (>60 ml/min/1.73 sqM); Albumin 4.9 g/dL (3.5-5.0); Alkaline Phosphatase 129 U/L (38-126); Anion Gap 7 mmol/L; Blood Urea Nitrogen 15 mg/dL (7-17); C Reactive Protein <5.0 mg/L (<10.0); Carbon Dioxide 27 mmol/L (22-30); Chloride 105 mmol/L (98-107); Glucose 89 mg/dL (74-99); LDH 556 U/L (313-618); Magnesium 2.1 mg/dL (1.6-2.3); Non-African American GFR(CKD) 77 (>60 ml/min/1.73 sqM); Sodium 139 mmol/L (137-145); Total Bilirubin 0.7 mg/dL (0.2-1.3); Total Protein 7.8 g/dL (6.3-8.2)
--- NOTE | 2020-09-10 12:00 | XR ---
EXAMINATION TYPE: XR chest 1V portable DATE OF EXAM: 09/10/2020 HISTORY: Shortness of breath. COMPARISON: 01/04/2020 TECHNIQUE: Single view of the chest is submitted. FINDINGS: Demonstrated are scattered senescent parenchymal change. There is no evidence for focal infiltrate. The heart is stable. Hilar and mediastinal structures are within normal limits. Degenerative changes are seen of the dorsal spine. IMPRESSION: 1. Chronic changes without evidence for acute pulmonary disease.
[2020-09-10 12:04] LABS: D-Dimer 0.2 mg/L FEU (<0.60); Prothrombin Time 9.9 sec (9.0-12.0)
--- NOTE | 2020-09-10 12:30 | ED ---
Arrhythmia/Palpitations HPI - General Chief Complaint: Arrhythmia/Palpitations Stated Complaint: chest pain, fever Time Seen by Provider: 09/10/20 10:31 Source: patient Mode of arrival: wheelchair Limitations: no limitations - History of Present Illness Initial Comments: 49yo female presenting today for cc of malaise, cough, sore throat, palpitations, night sweats. Patient states that since Saturday she has not been feeling like herself. She admits to body aches, night sweats, cough and sore throat. Patient statse she struggles from palpitations chronically and she has been experiencing this more frequently. States occasionally she has a sharp pain in her chest. Denies hemoptysis, leg swelling, nausea, vomiting, diarrhea. Denies headaches, neck stiffness. Pt admits to slight SOB. States that she has been taking her oxygen at home which has been normal but yesterday she had a fevre and also noted that her HR was hgih. Denies additional complaints. - Related Data Home Medications Medication Instructions Recorded Confirmed Losartan Potassium [Cozaar] 100 mg PO DAILY 04/08/19 09/10/20 Acetaminophen Tab [Tylenol Tab] 1,000 mg PO Q6HR PRN 09/10/20 09/10/20 Acetaminophen/Diphenhydramine 2 tab PO HS PRN 09/10/20 09/10/20 [Tylenol PM 500-25mg] Ibuprofen [Motrin Ib] 800 mg PO Q6H PRN 09/10/20 09/10/20 Allergies Allergy/AdvReac Type Severity Reaction Status Date / Time Tetanus Vaccines and Toxoid Allergy Severe Anaphylaxis Verified 09/10/20 11:47 [Tetanus Vaccines & Toxoid] amlodipine [From Norvasc] Allergy hypertension, Verified 09/10/20 11:47 high heart rate methyldopa [From Aldomet] Allergy effected Verified 09/10/20 11:47 liver methyldopate HCl Allergy effected Verified 09/10/20 11:47 [From Aldomet] liver valsartan Allergy Chest Pain Verified 09/10/20 11:47 lisinopril AdvReac Cough Verified 09/10/20 11:47 Review of Systems ROS Statement: Those systems with pertinent positive or pertinent negative responses have been documented in the HPI. ROS Other: All systems not noted in ROS Statement are negative. Past Medical History Past Medical History: CVA/TIA, Hypertension, Liver Disease, Musculoskeletal Disorder, Pneumonia Additional Past Medical History / Comment(s): Hx Migraines, occ palpitations, hx gastric ulcer, gallstones, pancreatitis, autoimmune hepatitis. lacunar stroke noted on scan. Spinal stenosis, 2 herniated discs. History of Any Multi-Drug Resistant Organisms: None Reported Past Surgical History: Breast Surgery, Cholecystectomy Additional Past Surgical History / Comment(s): Exploratory laparoscopy, liver biopsy, Breast Augmentation, PAIN CLINIC PROCEDURES Past Anesthesia/Blood Transfusion Reactions: Motion Sickness Past Psychological History: Anxiety, Depression Smoking Status: Current every day smoker Past Alcohol Use History: Occasional Past Drug Use History: None Reported - Past Family History Mother Family Medical History: Cancer General Exam - General Exam Comments Initial Comments: General: The patient is awake and alert, in no distress Eye: Pupils are equal, round and reactive to light, extra-ocular movements are intact. No nystagmus. There is normal conjunctiva bilaterally. No signs of icterus. Ears, nose, mouth and throat: There are moist mucous membranes and no oral lesions. Neck: The neck is supple, there is no tenderness or JVD. Cardiovascular: There is a regular rate and rhythm. No murmur, rub or gallop is appreciated. Respiratory: Lungs are clear to auscultation, respirations are non-labored, breath sounds are equal. No wheezes, stridor, rales, or rhonchi. Gastrointestinal: Soft, non-distended, non-tender abdomen without masses or organomegaly noted. There is no rebound or guarding present. Musculoskeletal: Normal ROM, no tenderness. Strength 5/5. Sensation intact. Radial pulses equal bilaterally 2+. Neurological: A&O x 3. CN II-XII intact, There are no obvious motor or sensory deficits. Coordination appears grossly intact. Speech is normal. Skin: Skin is warm and dry and no rashes or lesions are noted. No LE edema, calf pain or swelling. Psychiatric: Cooperative, appropriate mood & affect, normal judgment. Limitations: no limitations Course Vital Signs 09/10/20 09/10/20 10:22 12:30 Temperature 98.4 F 97.8 F Pulse Rate 112 H 95 Respiratory 18 16 Rate Blood Pressure 144/103 137/97 O2 Sat by Pulse 98 100 Oximetry - Reevaluation(s) Reevaluation #1: Discussed with nurse patient case, she states pt complaining of chest pressure, pt initially denied this. Patient given aspirin. EKG will be repeated and troponin added. pt inconsistent with history. 09/10/20 12:36 Reevaluation #2: SPoke with patient states she has chest pressure on and off, yesterday left arm pain. pt did not disclose this and actually denied this initially-- repeat EKG no changes, reviewed ith dr. Alexander, given aspirin morphine. Patient will be admitted for serial troponins. 09/10/20 12:48 EKG Findings - EKG Comments: EKG Findings:: Repeat EKG at 1243 ventricular rate 85 bpm, [place] interval 124 ms, QRS duration 98 ms, QT/QTC 388/[address] elevation or depression is appreciated. some slighy early repolarization Medical Decision Making - Medical Decision Making Troponin (-). repeat pending. Patient cxr clear. rapid covid (-). Dimer WNL. Patient HR normalized. EKG no acute changes appreciated by myself or attending. Pt givne pain medications. patietn initially presented for covid like symptoms. still concern for false (-). pt has been exposed. Patient is agreeable to admission for cp r/o. and further monitoring. she appears wlel. Dr. alexander agreeable to care plan. - Lab Data Result diagrams: 09/10/20 11:16 09/10/20 11:16 Lab Results 09/10/20 09/10/20 09/10/20 Range/Units 11:16 11:16 11:16 WBC 7.2 (3.8-10.6) k/uL RBC 5.13 (3.80-5.40) m/uL Hgb 15.5 (11.4-16.0) gm/dL Hct 45.0 (34.0-46.0) % MCV 87.6 (80.0-100.0) fL MCH 30.2 (25.0-35.0) pg MCHC 34.5 (31.0-37.0) g/dL RDW 12.7 (11.5-15.5) % Plt Count 396 (150-450) k/uL MPV 7.0 Neutrophils % 76 % Lymphocytes % 15 % Monocytes % 6 % Eosinophils % 1 % Basophils % 1 % Neutrophils # 5.4 (1.3-7.7) k/uL Lymphocytes # 1.1 (1.0-4.8) k/uL Monocytes # 0.4 (0-1.0) k/uL Eosinophils # 0.1 (0-0.7) k/uL Basophils # 0.1 (0-0.2) k/uL PT 9.9 (9.0-12.0) sec INR 1.0 (<1.2) APTT 26.0 (22.0-30.0) sec D-Dimer 0.20 (<0.60) mg/L FEU Sodium 139 (137-145) mmol/L Potassium 4.8 (3.5-5.1) mmol/L Chloride 105 (98-107) mmol/L Carbon Dioxide 27 (22-30) mmol/L Anion Gap 7 mmol/L BUN 15 (7-17) mg/dL Creatinine 0.88 (0.52-1.04) mg/dL Est GFR (CKD-EPI)AfAm 89 (>60 ml/min/1.73 sqM) Est GFR (CKD-EPI)NonAf 77 (>60 ml/min/1.73 sqM) Glucose 89 (74-99) mg/dL Plasma Lactic Acid Can (0.7-2.0) mmol/L Calcium 10.0 (8.4-10.2) mg/dL Magnesium 2.1 (1.6-2.3) mg/dL Total Bilirubin 0.7 (0.2-1.3) mg/dL AST 29 (14-36) U/L ALT 26 (4-34) U/L Alkaline Phosphatase 129 H (38-126) U/L Lactate Dehydrogenase 556 (313-618) U/L Troponin I (0.000-0.034) ng/mL C-Reactive Protein <5.0 (<10.0) mg/L Total Protein 7.8 (6.3-8.2) g/dL Albumin 4.9 (3.5-5.0) g/dL TSH 1.530 (0.465-4.680) mIU/L Coronavirus (PCR) (Not Detectd) 09/10/20 09/10/20 09/10/20 Range/Units 11:16 11:16 11:16 WBC (3.8-10.6) k/uL RBC (3.80-5.40) m/uL Hgb (11.4-16.0) gm/dL Hct (34.0-46.0) % MCV (80.0-100.0) fL MCH (25.0-35.0) pg MCHC (31.0-37.0) g/dL RDW (11.5-15.5) % Plt Count (150-450) k/uL MPV Neutrophils % % Lymphocytes % % Monocytes % % Eosinophils % % Basophils % % Neutrophils # (1.3-7.7) k/uL Lymphocytes # (1.0-4.8) k/uL Monocytes # (0-1.0) k/uL Eosinophils # (0-0.7) k/uL Basophils # (0-0.2) k/uL PT (9.0-12.0) sec INR (<1.2) APTT (22.0-30.0) sec D-Dimer (<0.60) mg/L FEU Sodium (137-145) mmol/L Potassium (3.5-5.1) mmol/L Chloride (98-107) mmol/L Carbon Dioxide (22-30) mmol/L Anion Gap mmol/L BUN (7-17) mg/dL Creatinine (0.52-1.04) mg/dL Est GFR (CKD-EPI)AfAm (>60 ml/min/1.73 sqM) Est GFR (CKD-EPI)NonAf (>60 ml/min/1.73 sqM) Glucose (74-99) mg/dL Plasma Lactic Acid Can 0.8 (0.7-2.0) mmol/L Calcium (8.4-10.2) mg/dL Magnesium (1.6-2.3) mg/dL Total Bilirubin (0.2-1.3) mg/dL AST (14-36) U/L ALT (4-34) U/L Alkaline Phosphatase (38-126) U/L Lactate Dehydrogenase (313-618) U/L Troponin I <0.012 (0.000-0.034) ng/mL C-Reactive Protein (<10.0) mg/L Total Protein (6.3-8.2) g/dL Albumin (3.5-5.0) g/dL TSH (0.465-4.680) mIU/L Coronavirus (PCR) Not Detected (Not Detectd) Disposition Clinical Impression: Chest discomfort, Sore throat, Cough, Palpitations, Generalized weakness, Fever Disposition: ADMITTED IP TO THIS [facility] Condition: Stable Is patient prescribed a controlled substance at d/c from ED?: No Referrals: Bao Lanza MD [Primary Care Provider] - 1-2 days Time of Disposition: 13:00 Decision to Admit Reason: Admit from EC Decision Date: 09/10/20 Decision Time: 13:00
[2020-09-10 12:31] VITALS: RESP 16
[2020-09-10] MEDS ORDERED: ASPIRIN 81 MG PO STA (12:35)
[2020-09-10] MEDS ORDERED: NITROGLYCERIN SL TABS 0.4 MG TAB SUBLINGUAL PRN (12:55)
[2020-09-10] MEDS: MORPHINE SULFATE 2 MG/ML SYRINGE IVP PRN ×4 (12:55→20:10)
[2020-09-10] MEDS ORDERED: NITROGLYCERIN OINT 1 INCH/GM PACKET TOPICAL STA (12:56)
[2020-09-10] MEDS ORDERED: ONDANSETRON 4 MG/2 ML VIAL IVP STA (13:00)
[2020-09-10] MEDS: LOSARTAN 50 MG TAB PO SCH (17:04)
[2020-09-10 18:08] LABS: Ferritin 67.4 ng/mL (10.0-291.0)
[2020-09-10] MEDS: ACETAMINOPHEN TAB 325 MG TAB PO PRN (18:10)
--- NOTE | 2020-09-10 21:53 | P.HPIM ---
History of Present Illness H&P Date: 09/10/20 Chief Complaint: Palpitations Patient is a 49-year-old female with a known history of hypertension, migraine headaches, occasional palpitations, history of gastric ulcer, gallstones, autoimmune hepatitis and history of lacunar infarct/CVA, spinal stenosis, anxiety/depression and currently everyday smoker presents to ER with complaints of chest tightness which woke her up from sleep this morning. Patient was also complaining of cough sore throat palpitations and night sweats and hot flashes. She has been having the symptoms since last Saturday. Associate with body a ches, night sweats and cough and sore throat. Today morning patient felt sharp pain in the chest and her left arm felt heavy. Associated with minimal shortness of breath. No associated nausea vomiting or diaphoresis. No headache or dizziness or lightheadedness. Patient states that her heart rate went up to 160s when she checked at home. No leg swelling. Patient states that she has been going to her menopause. Chest x-ray showed chronic changes without evidence of acute pulmonary disease. EKG showed normal sinus rhythm with heart rate 98 Laboratory showed WBC 7.2, hemoglobin 15.5 and platelets 396 D-dimer 0.2 not elevated Laboratory within normal limits. Troponin x3 - TSH 1.530 and procalcitonin 0.040 COVID-19 PCR negative. Inflammatory markers not elevated. Review of Systems Constitutional: Patient denies any fever or chills . No generalized weakness or weight loss. Abdomen: Patient denied nausea vomiting and diarrhea and abdominal pain. Cardiovascular: Patient complains of chest tightness and associated shortness of breath and palpitations. No leg swelling.. Respiratory: patient denied any cough or sputum production. No shortness of breath Neurologic: Patient denied any numbness or tingling headache. Musculoskeletal: Patient denies any complaints of joint swelling or deformity. Skin: Negative Psychiatric: Negative Endocrine: No heat or cold intolerance. No recent weight gain. Genitourinary: No dysuria or hematuria. All other 14 point ROS negative except the above Past Medical History Past Medical History: CVA/TIA, Hypertension, Liver Disease, Musculoskeletal Disorder, Pneumonia Additional Past Medical History / Comment(s): Hx Migraines, occ palpitations, hx gastric ulcer, gallstones, pancreatitis, autoimmune hepatitis. lacunar stroke noted on scan. Spinal stenosis, 2 herniated discs. History of Any Multi-Drug Resistant Organisms: None Reported Past Surgical History: Breast Surgery, Cholecystectomy Additional Past Surgical History / Comment(s): Exploratory laparoscopy, liver biopsy, Breast Augmentation, PAIN CLINIC PROCEDURES Past Anesthesia/Blood Transfusion Reactions: Motion Sickness Past Psychological History: Anxiety, Depression Smoking Status: Current every day smoker Past Alcohol Use History: Occasional Additional Past Alcohol Use History / Comment(s): 10 cig/day, attempting to quit, has smoked on/ off since 15 Past Drug Use History: None Reported - Past Family History Mother Family Medical History: Cancer Medications and Allergies Home Medications Medication Instructions Recorded Confirmed Type Losartan Potassium [Cozaar] 100 mg PO DAILY 04/08/19 09/10/20 History Acetaminophen Tab [Tylenol Tab] 1,000 mg PO Q6HR PRN 09/10/20 09/10/20 History Acetaminophen/Diphenhydramine 2 tab PO HS PRN 09/10/20 09/10/20 History [Tylenol PM 500-25mg] Ibuprofen [Motrin Ib] 800 mg PO Q6H PRN 09/10/20 09/10/20 History Allergies Allergy/AdvReac Type Severity Reaction Status Date / Time Tetanus Vaccines and Toxoid Allergy Severe Anaphylaxis Verified 09/10/20 11:47 [Tetanus Vaccines & Toxoid] amlodipine [From Norvasc] Allergy hypertension, Verified 09/10/20 11:47 high heart rate methyldopa [From Aldomet] Allergy effected Verified 09/10/20 11:47 liver methyldopate HCl Allergy effected Verified 09/10/20 11:47 [From Aldomet] liver valsartan Allergy Chest Pain Verified 09/10/20 11:47 lisinopril AdvReac Cough Verified 09/10/20 11:47 Physical Exam Vitals: Vital Signs Temp Pulse Pulse Resp BP BP BP 09/10/20 20:43 96.7 F L 91 16 124/87 09/10/20 15:10 97.8 F 94 16 149/105 09/10/20 15:05 98.2 F 86 16 157/97 09/10/20 15:00 94 16 149/105 09/10/20 14:00 94 16 142/92 09/10/20 13:00 95 16 137/97 09/10/20 12:30 97.8 F 95 16 137/97 09/10/20 10:22 98.4 F 112 H 18 144/103 Pulse Ox 09/10/20 20:43 96 09/10/20 15:10 100 09/10/20 15:05 99 09/10/20 15:00 100 09/10/20 14:00 100 09/10/20 13:00 100 09/10/20 12:30 100 09/10/20 10:22 98 Intake and Output 09/10/20 09/10/20 09/10/20 06:59 14:59 22:59 Other: # Voids 1 Weight 68.039 kg 68.039 kg PHYSICAL EXAMINATION: Patient is lying in the bed comfortably, no acute distress, awake alert and oriented.. HEENT: Normocephalic. Neck is supple. Pupils reactive. Nostrils clear. Oral cavity is moist. Ears reveal no drainage. Neck reveals no JVD, carotid bruits, or thyromegaly. CHEST EXAMINATION: Trachea is central. Symmetrical expansion. Lung mullen clear to auscultation and percussion. CARDIAC: Normal S1, S2 with no gallops. No murmurs ABDOMEN: Soft. Bowel sounds normal. No organomegaly. No abdominal bruits. Extremities: reveal no edema. No clubbing or cyanosis Neurologically awake, alert, oriented x3 with well-coordinated movements. No focal deficits noted Skin: No rash or skin lesions. Psychiatric: Coperative. Nonsuicidal Musculoskeletal: No joint swelling or deformity. Normal range of motion. Results CBC & Chem 7: 09/10/20 11:16 09/10/20 11:16 Labs: Abnormal Lab Results - Last 24 Hours (Table) 09/10/20 Range/Units 11:16 Alkaline Phosphatase 129 H (38-126) U/L Thrombosis Risk Factor Assmnt - DVT/VTE Prophylaxis DVT/VTE Prophylaxis: Pharmacologic Prophylaxis ordered, Mechanical Prophylaxis o rdered - Choose All That Apply Any of the Below Risk Factors Present?: Yes Each Factor Represents 1 point: Age 41-60 years Thrombosis Risk Factor Assessment Total Risk Factor Score: 1 Thrombosis Risk Factor Assessment Level: Low Risk Assessment and Plan Assessment: Atypical chest pain with palpitations. Rule out ACS. Sinus tachycardia Hypertension History of migraine headaches History of gastric ulcer Autoimmune hepatitis history as per patient. LFTs not elevated currently. Spinal stenosis and herniated disc History of breast augmentation surgery. Anxiety/depression Currently everyday smoker and occasional alcohol use NSAID use in the form of Motrin at home DVT prophylaxis with SCDs Plan: Patient will be continued on telemetry monitoring. Rule out arrhythmia.. serial troponin x3 -. Cardiology was consulted. Started back on home blood pressure medications in the form of Cozaar. Tylenol as needed for pain and follow-up closely.
[2020-09-10] MEDS: PANTOPRAZOLE 40 MG TABLET PO SCH (22:59)
[2020-09-10] MEDS: KETOROLAC 15 MG/ML 1 ML VIAL IVP PRN (23:31)
[2020-09-11] MEDS: MORPHINE SULFATE 2 MG/ML SYRINGE IVP PRN ×2 (01:05→06:39)
[2020-09-11] MEDS: SODIUM CHLORIDE 0.9% 1,000 ML IV SCH ×2 (03:11→12:47)
[2020-09-11] MEDS: PANTOPRAZOLE 40 MG TABLET PO SCH (06:39)
[2020-09-11] MEDS: LOSARTAN 50 MG TAB PO SCH (08:48)
[2020-09-11] MEDS: ASPIRIN 325 MG TAB PO SCH (08:49)
[2020-09-11 09:10] LABS: Cholesterol 231 mg/dL (<200); HDL Cholesterol 64 mg/dL (40-60); LDL Cholesterol,Calculated 151 mg/dL (0-99); Triglycerides 80 mg/dL (<150)
[2020-09-11] MEDS ORDERED: TEMAZEPAM 7.5 MG CAP PO PRN (12:23)
--- NOTE | 2020-09-11 12:38 | P.CRDCN ---
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 Pt presents to ER complaining of being awoke in the night by palpitations, chest tightness and left arm heaviness. Patient states a few days prior she had been getting palpitations with heart rate elevation to 120. Patient has been feeling achy, dizzy, nauseous and lightheaded with standing for the past few days as well. 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 Patient states stress has been very significant. On exam patient is alert and oriented in no acute distress. Patient has no current complaints of chest pain or discomfort. Sinus rhythm on telemetry, heart rate 98. Troponins negative 3. DX of chest showed no acute process. 19 testing, negative. Labs unremarkable. Patient states she had normal stress testing approximately 20 years ago but does not follow with cardiology. Patient does have a paternal CAD history and her father had his first [place] at 49 and from [place] at 59. Patient blood pressure is elevated this day 149/105, heart rate 91. Afebrile. Patient sats 100% on 2 L of O2 NC. SIGNIFICANT PAST MEDICAL HISTORY: GERD, gastric ulcer, gallstones, spinal stenosis, anxiety depression, migraine headaches, current smoking one half pack per day, CVA/lacunar infarct, hypertension and autoimmune hepatitis secondary to drug reaction. PAST SURGICAL HISTORY: See list. EKG = Sinus Rhythm, HR 98. No acute process Troponins negative x 3 SIGNIFICANT LABORATORY VALUES: Cholesterol 231, LDL 151, HDL 64, Trigs 80 Chest x-ray 09/10/20, no acute process Most recent echo = no recent testing Most recent stress testing = no recent testing REVIEW OF SYSTEMS: CONSTITUTIONAL: Denies fever. Denies chills. EYES: Denies blurred vision. Denies blurred vision or vision changes. Denies eye pain. EARS, NOSE, MOUTH & THROAT: Denies headache. Denies sore throat. Denies ear pain Denies hemoptysis. CARDIOVASCULAR: Complains of chest pain. Denies shortness of breath. Denies orthopnea. Denies PND. Complains of palpitations. RESPIRATORY: Denies cough. Denies shortness of breath. GASTROINTESTINAL: Denies abdominal pain or distention. Denies diarrhea. Denies constipation. Complains of nausea, no vomiting. MUSCULOSKELETAL: Complains of myalgias. Complaints of LEFT arm heaviness. INTEGUMENTARY: Denies pruitis. Denies rash. ENDOCRINE: Complains of fatigue. Denies weight change. Denies polydipsia. Denies polyurina Denies heat/cold intolerance. GENITOURINARY: Denies burning, hematuria or urgency with micturation. HEMATOLOGIC: Denies history of anemia. Denies bleeding. NEUROLOGIC: Denies numbness. Denies tingling. Complains of weakness. PSYCHIATRIC: Denies anxiety. Denies depression. Complains of extreme stress. PHYSICAL EXAM: GENERAL: Well developed, anxious. HEENT: Head is atraumatic, normocephalic. Pupils are equal, round. Extra ocular movements intact. Mucous membranes moist. Neck supple. No JVD. No carotid bruit. No thyromegaly. LUNGS: Clear to auscultation. No wheezes, rales or rhonchi. No chest wall tenderness on palpation or with deep breathing. HEART: Regular rate and rhythm, no rubs or gallops. S1 and S2 heard. No murmur. ABDOMEN: Abdominal exam, WNL. Bowel sounds x4 quads. Soft, non-tender, without masses, organomegaly, or abdominal aorta enlargement. EXTREMITIES/VASCULAR: Extremities have easily palpable radial, femoral, dorsalis pedis and posterior tibial pulses. No cyanosis, calf tenderness. No BLE edema. NEUROLOGIC: Patient is awake, alert and oriented x3. No focal neurologic abnormalities. FINAL IMPRESSION: 1. Chest pain 2. Hypertension 3. Hyperlipidemia 4. Early family hx of CAD 5. Palpitations PLAN: Pt to inpatient stress echo and echocardiogram on Saturday. START Metoprolol tartrate 25 mg twice daily. START Lipitor 40 mg once daily. Nurse Practitioner note has been reviewed by the Physician. Signing provider agrees with the documented findings, assessment and plan of care. Past Medical History Past Medical History: CVA/TIA, Hypertension, Liver Disease, Musculoskeletal Disorder, Pneumonia Additional Past Medical History / Comment(s): Hx Migraines, occ palpitations, hx gastric ulcer, gallstones, pancreatitis, autoimmune hepatitis. lacunar stroke noted on scan. Spinal stenosis, 2 herniated discs. History of Any Multi-Drug Resistant Organisms: None Reported Past Surgical History: Breast Surgery, Cholecystectomy Additional Past Surgical History / Comment(s): Exploratory laparoscopy, liver biopsy, Breast Augmentation, PAIN CLINIC PROCEDURES Past Anesthesia/Blood Transfusion Reactions: Motion Sickness Past Psychological History: Anxiety, Depression Smoking Status: Current every day smoker Past Alcohol Use History: Occasional Additional Past Alcohol Use History / Comment(s): 10 cig/day, attempting to quit, has smoked on/ off since 15 Past Drug Use History: None Reported - Past Family History Mother Family Medical History: Cancer Medications and Allergies Home Medications Medication Instructions Recorded Confirmed Type Losartan Potassium [Cozaar] 100 mg PO DAILY 04/08/19 09/10/20 History Acetaminophen Tab [Tylenol Tab] 1,000 mg PO Q6HR PRN 09/10/20 09/10/20 History Acetaminophen/Diphenhydramine 2 tab PO HS PRN 09/10/20 09/10/20 History [Tylenol PM 500-25mg] Ibuprofen [Motrin Ib] 800 mg PO Q6H PRN 09/10/20 09/10/20 History Allergies Allergy/AdvReac Type Severity Reaction Status Date / Time Tetanus Vaccines and Toxoid Allergy Severe Anaphylaxis Verified 09/10/20 11:47 [Tetanus Vaccines & Toxoid] amlodipine [From Norvasc] Allergy hypertension, Verified 09/10/20 11:47 high heart rate methyldopa [From Aldomet] Allergy effected Verified 09/10/20 11:47 liver methyldopate HCl Allergy effected Verified 09/10/20 11:47 [From Aldomet] liver valsartan Allergy Chest Pain Verified 09/10/20 11:47 lisinopril AdvReac Cough Verified 09/10/20 11:47 Physical Exam Vitals: Vital Signs Temp Pulse Pulse Resp BP BP BP 09/11/20 08:05 98.0 F 76 16 154/97 09/11/20 03:00 98.3 F 90 16 147/92 09/10/20 20:43 96.7 F L 91 16 124/87 09/10/20 15:10 97.8 F 94 16 149/105 09/10/20 15:05 98.2 F 86 16 157/97 09/10/20 15:00 94 16 149/105 09/10/20 14:00 94 16 142/92 09/10/20 13:00 95 16 137/97 09/10/20 12:30 97.8 F 95 16 137/97 Pulse Ox 09/11/20 08:05 100 09/11/20 03:00 97 09/10/20 20:43 96 09/10/20 15:10 100 09/10/20 15:05 99 09/10/20 15:00 100 09/10/20 14:00 100 09/10/20 13:00 100 09/10/20 12:30 100 Intake and Output 09/10/20 09/11/20 09/11/20 22:59 06:59 14:59 Other: # Voids 1 1 Weight 68.039 kg Results 09/10/20 11:16 09/10/20 11:16 Cardiac Enzymes 09/10/20 09/10/20 09/10/20 Range/Units 11:16 11:16 14:14 AST 29 (14-36) U/L Lactate Dehydrogenase 556 (313-618) U/L Troponin I <0.012 <0.012 (0.000-0.034) ng/mL 09/10/20 Range/Units 17:42 AST (14-36) U/L Lactate Dehydrogenase (313-618) U/L Troponin I <0.012 (0.000-0.034) ng/mL Coagulation 09/10/20 Range/Units 11:16 PT 9.9 (9.0-12.0) sec APTT 26.0 (22.0-30.0) sec Lipids 09/11/20 Range/Units 07:31 Triglycerides 80 (<150) mg/dL Cholesterol 231 H (<200) mg/dL HDL Cholesterol 64 H (40-60) mg/dL CBC 09/10/20 Range/Units 11:16 WBC 7.2 (3.8-10.6) k/uL RBC 5.13 (3.80-5.40) m/uL Hgb 15.5 (11.4-16.0) gm/dL Hct 45.0 (34.0-46.0) % Plt Count 396 (150-450) k/uL Comprehensive Metabolic Panel 09/10/20 Range/Units 11:16 Sodium 139 (137-145) mmol/L Potassium 4.8 (3.5-5.1) mmol/L Chloride 105 (98-107) mmol/L Carbon Dioxide 27 (22-30) mmol/L BUN 15 (7-17) mg/dL Creatinine 0.88 (0.52-1.04) mg/dL Glucose 89 (74-99) mg/dL Calcium 10.0 (8.4-10.2) mg/dL AST 29 (14-36) U/L ALT 26 (4-34) U/L Alkaline Phosphatase 129 H (38-126) U/L Total Protein 7.8 (6.3-8.2) g/dL Albumin 4.9 (3.5-5.0) g/dL Current Medications Generic Name Dose Route Start Last Admin Trade Name Freq PRN Reason Stop Dose Admin Acetaminophen 650 mg 09/10/20 18:05 09/10/20 18:10 Acetaminophen Tab 325 Mg Tab PO 650 mg Q6HR PRN Administration Fever and/ or Pain Aspirin 325 mg 09/11/20 09:00 09/11/20 08:49 Aspirin 325 Mg Tab PO 325 mg DAILY TAMARA Administration Sodium Chloride 1,000 mls @ 75 mls/hr 09/10/20 11:00 09/11/20 03:11 Saline 0.9% IV 75 mls/hr .[id number] TAMARA Administration Ketorolac Tromethamine 15 mg 09/10/20 23:19 09/10/20 23:31 Ketorolac 15 Mg/Ml 1 Ml Vial IVP 09/13/20 23:19 15 mg Q6HR PRN Administration Migraine Headache Losartan Potassium 100 mg 09/10/20 16:45 09/11/20 08:48 Losartan 50 Mg Tab PO 100 mg DAILY TAMARA Administration Morphine Sulfate 2 mg 09/10/20 12:47 09/11/20 06:39 Morphine Sulfate 2 Mg/Ml Syringe IVP 2 mg Q4H PRN Administration Pain/Discomfort Nitroglycerin 0.4 mg 09/10/20 12:55 Nitroglycerin Sl Tabs 0.4 Mg Tab SUBLINGUAL Q5M PRN Chest Pain Pantoprazole Sodium 40 mg 09/10/20 21:45 09/11/20 06:39 Pantoprazole 40 Mg Tablet PO 40 mg [id number] TAMARA Administration Intake and Output 09/10/20 09/11/20 09/11/20 22:59 06:59 14:59 Other: # Voids 1 1 Weight 68.039 kg 09/10/20 11:16 09/10/20 11:16 - EKG Interpretation EKG: sinus rhythm
[2020-09-11] MEDS: METOPROLOL TARTRATE 25 MG TAB PO SCH ×2 (12:46→21:21)
[2020-09-11] MEDS ORDERED: ATORVASTATIN 40 MG TAB PO SCH (21:00)
[2020-09-11] MEDS: ACETAMINOPHEN TAB 325 MG TAB PO PRN (21:42)
--- NOTE | 2020-09-11 21:59 | P.PN ---
Subjective Progress Note Date: 09/11/20 Principal diagnosis: Chest pain Patient is a 49-year-old female with a known history of hypertension, migraine headaches, occasional palpitations, history of gastric ulcer, gallstones, autoimmune hepatitis and history of lacunar infarct/CVA, spinal stenosis, anxiety/depression and currently everyday smoker presents to ER with complaints of chest tightness which woke her up from sleep this morning. Patient was also complaining of cough sore throat palpitations and night sweats and hot flashes. She has been having the symptoms since last Saturday. Associate with body ach es, night sweats and cough and sore throat. Today morning patient felt sharp pain in the chest and her left arm felt heavy. Associated with minimal shortness of breath. No associated nausea vomiting or diaphoresis. No headache or dizziness or lightheadedness. Patient states that her heart rate went up to 160s when she checked at home. No leg swelling. Patient states that she has been going to her menopause. Chest x-ray showed chronic changes without evidence of acute pulmonary disease. EKG showed normal sinus rhythm with heart rate 98 Laboratory showed WBC 7.2, hemoglobin 15.5 and platelets 396 D-dimer 0.2 not elevated Laboratory within normal limits. Troponin x3 - TSH 1.530 and procalcitonin 0.040 COVID-19 PCR negative. Inflammatory markers not elevated. 09/11/2020 Patient is currently sitting in the bed comfortably. Patient states that her chest discomfort is much improved today. Serial troponins negative. Seen by cardiology and recommended stress test tomorrow. Currently patient is afebrile. COVID-19 PCR negative. Tumor markers are not elevated. No other acute overnight issues. No nausea vomiting or abdominal pain or diarrhea. Current medications reviewed. Objective - Vital Signs Vital signs: Vital Signs Temp 98.2 F 09/11/20 15:00 Pulse 70 09/11/20 15:00 Resp 16 09/11/20 15:00 BP 129/87 09/11/20 15:00 Pulse Ox 100 09/11/20 15:00 Intake & Output 09/10/20 09/11/20 09/11/20 18:59 06:59 18:59 Intake Total 1320 Balance 1320 Weight 68.039 kg Intake: Intake, IV Titration 600 Amount Sodium Chloride 0.9% 1, 600 000 ml @ 75 mls/hr IV . [id number] TAMARA Rx#:[id number] Oral 720 Other: # Voids 1 1 - Exam PHYSICAL EXAMINATION: Patient is lying in the bed comfortably, no acute distress, awake alert and oriented.. HEENT: Normocephalic. Neck is supple. Pupils reactive. Nostrils clear. Oral cavity is moist. Ears reveal no drainage. Neck reveals no JVD, carotid bruits, or thyromegaly. CHEST EXAMINATION: Trachea is central. Symmetrical expansion. Lung mullen clear to auscultation and percussion. CARDIAC: Normal S1, S2 with no gallops. No murmurs ABDOMEN: Soft. Bowel sounds normal. No organomegaly. No abdominal bruits. Extremities: reveal no edema. No clubbing or cyanosis Neurologically awake, alert, oriented x3 with well-coordinated movements. No focal deficits noted Skin: No rash or skin lesions. Psychiatric: Coperative. Nonsuicidal Musculoskeletal: No joint swelling or deformity. Normal range of motion. - Labs CBC & Chem 7: 09/10/20 11:16 09/10/20 11:16 Labs: Abnormal Lab Results - Last 24 Hours (Table) 09/11/20 Range/Units 07:31 Cholesterol 231 H (<200) mg/dL LDL Cholesterol, Calc 151 H (0-99) mg/dL HDL Cholesterol 64 H (40-60) mg/dL Microbiology - Last 24 Hours (Table) 09/10/20 10:54 Blood Culture - Preliminary Blood No Growth after 24 hours Assessment and Plan Assessment: Atypical chest pain with palpitations. Ruled out ACS. Sinus tachycardia Hypertension History of migraine headaches History of gastric ulcer Autoimmune hepatitis history as per patient. LFTs not elevated currently. Spinal stenosis and herniated disc History of breast augmentation surgery. Anxiety/depression Currently everyday smoker and occasional alcohol use NSAID use in the form of Motrin at home DVT prophylaxis with SCDs Plan: Patient will be continued on telemetry monitoring. Rule out arrhythmia.. serial troponin x3 -. Cardiology was consulted. Plan for stress test tomorrow. Started back on home blood pressure medications in the form of Cozaar. Tylenol as needed for pain and follow-up closely. Time with Patient: Greater than 30
[2020-09-11] MEDS: KETOROLAC 15 MG/ML 1 ML VIAL IVP PRN (22:41)
[2020-09-12] MEDS: SODIUM CHLORIDE 0.9% 1,000 ML IV SCH (02:01)
[2020-09-12] MEDS: MORPHINE SULFATE 2 MG/ML SYRINGE IVP PRN ×2 (02:14→08:24)
[2020-09-12] MEDS: KETOROLAC 15 MG/ML 1 ML VIAL IVP PRN (06:44)
[2020-09-12] MEDS: PANTOPRAZOLE 40 MG TABLET PO SCH (06:55)
[2020-09-12] MEDS: LOSARTAN 50 MG TAB PO SCH (08:23)
[2020-09-12] MEDS: ASPIRIN 325 MG TAB PO SCH (08:33)
[2020-09-12 08:59] VITALS: BP 174/95; PULSE 60; TEMP 97.6
--- NOTE | 2020-09-12 10:15 | P.PN ---
Subjective Progress Note Date: 09/12/20 This is a 49-year-old female with documented history of migraines, nicotine dependence, prior CVA, hypertension, autoimmune hepatitis, GERD, spinal stenosis, anxiety and depression, who presented to the hospital with symptoms of atypical chest discomfort and palpitations. She was seen in consultation yesterday by Dr. Devin Bazzi. Patient was recommended today to undergo a stress test with echocardiogram with Doppler study. Her blood pressure this morning 174/90 with a heart rate in the 60s, 99% on room air. Cholesterol level 231, LDL 151, HDL 64 and triglycerides 80. Objective - Vital Signs Vital signs: Vital Signs Temp 97.6 F 09/12/20 08:55 Pulse 60 09/12/20 08:55 Resp 16 09/12/20 08:55 BP 174/95 09/12/20 08:55 Pulse Ox 99 09/12/20 08:55 Intake & Output 09/11/20 09/12/20 09/12/20 18:59 06:59 18:59 Intake Total 1320 Balance 1320 Intake: Intake, IV Titration 600 Amount Sodium Chloride 0.9% 1, 600 000 ml @ 75 mls/hr IV . [id number] TAMARA Rx#:[id number] Oral 720 Other: Voiding Method Toilet Toilet # Voids 1 1 - Exam PHYSICAL EXAMINATION: GENERAL: 49-year-old female in no acute distress at the time of my examination HEENT: Head is atraumatic, normocephalic. Pupils equal, round. Sclera anicteric. Conjunctiva are clear. Mucous membranes of the mouth are moist. Neck is supple. There is no elevated jugular venous pressure. No carotid bruit is heard. HEART EXAMINATION: Heart S1, S2 normal. No murmur or gallop heard. CHEST EXAMINATION: Lungs are clear to auscultation and precussion. No chest wall tenderness is noted on palpation or with deep breathing. ABDOMEN: Soft, nontender. Bowel sounds are heard. No organomegaly noted. EXTREMITIES: 2+ peripheral pulses with no evidence of peripheral edema and no calf tenderness noted. NEUROLOGIC patient is awake, alert and oriented 3 . . - Labs CBC & Chem 7: 09/10/20 11:16 09/10/20 11:16 Labs: Microbiology - Last 24 Hours (Table) 09/10/20 10:54 Blood Culture - Preliminary Blood No Growth after 24 hours Assessment and Plan Plan: Assessment and plan #1 chest pain, atypical for acute coronary syndrome, troponins negative 3. EKG shows normal sinus rhythm with no changes noted. #2 hypertension #3 hyperlipidemia #4 family history of premature coronary artery disease #5 palpitations, no arrhythmias noted on the monitor. Plan Patient is scheduled today to undergo stress echocardiographic study as well as an echocardiogram with Doppler study. Based on the results of those findings further recommendations will be made. DNP note has been reviewed, I agree with a documented findings and plan of care. Patient was seen and examined.
[2020-09-12] MEDS: METOPROLOL TARTRATE 25 MG TAB PO SCH (11:29)
--- NOTE | 2020-09-12 12:51 | ECHOF ---
Referral Reason:chest pain MEASUREMENTS -------- HEIGHT: 167.6 cm WEIGHT: 68.0 kg BP: 160/91 IVSd: 1.3 cm (0.6 - 1.1) LVIDd: 4.0 cm (3.9 - 5.3) LVPWd: 1.5 cm (0.6 - 1.1) EDV(Teich): 72 ml IVSs: 1.7 cm LVIDs: 2.7 cm LVPWs: 2.2 cm %IVS Thck: 31 % ESV(Teich): 26 ml EF(Teich): 63 % %FS: 34 % SV(Teich): 46 ml RVIDd: 4.0 cm (< 3.3) IVC: 17.20 mm LALs A4C: 4.3 cm LAAs A4C: 16.8 cm LAESV A-L A4C: 57 ml LAESV MOD A4C: 53 ml LALs A2C: 3.8 cm LAAs A2C: 12.4 cm LAESV A-L A2C: 35 ml LAESV MOD A2C: 33 ml LAESV(A-L): 47 ml LAESV Index (A-L): 26.58 ml/m Ao Diam: 2.7 cm (2.0 - 3.7) AV Cusp: 1.9 cm (1.5 - 2.6) EPSS: 0.6 cm MV E Juan José: 0.86 m/s MV DecT: 141 ms MV Dec Merrick: 6.1 m/s MV A Juan José: 0.73 m/s MV E/A Ratio: 1.19 MV PHT: 41 ms LVOT Vmax: 0.92 m/s LVOT maxP.37 mmHg AV Vmax: 1.05 m/s AV maxP.42 mmHg TR Vmax: 1.86 m/s TR maxP.81 mmHg RAP: 5.00 mmHg RVSP: 18.81 mmHg MV EF SLOPE: 118.15 mm/s (70 - 150) MV EXCURSION: 20.68 mm (> 18.000) FINDINGS -------- Sinus rhythm. This was a technically adequate study. The left ventricular size is normal. There is mild concentric left ventricular hypertrophy. [facility] systolic function is normal with, an EF between 55 - 60 %. The diastolic fillin g pattern is normal for the age of the patient {E/E'}. The right ventricle is moderately enlarged. Normal LA size by volume 22+/-6 ml/m2. The right atrial size is normal. Interatrial and interventricular septum intact. The aortic valve is trileaflet and appears structurally normal. There is no evidence of aortic regu rgitation. There is no evidence of aortic stenosis. Mild mitral regurgitation is present. Mild tricuspid regurgitation present. There is no evidence of pulmonary hypertension. The right v entricular systolic pressure, as measured by Doppler, is 18.81mmHg. There is no pulmonic regurgitation present. The aortic root size is normal. Normal inferior vena cava with normal inspiratory collapse consistent with estimated right atrial pre ssure of 5 mmHg. There is no pericardial effusion. CONCLUSIONS -------- 1. The left ventricular size is normal. 2. There is mild concentric left ventricular hypertrophy. 3. Overall left ventricular systolic function is normal with, an EF between 55 - 60 %. 4. The diastolic filling pattern is normal for the age of the patient {E/E'} 5. The right ventricle is moderately enlarged. 6. Mild mitral regurgitation is present. 7. Mild tricuspid regurgitation present. GUARDIAN AD LITEM: Kay Lara RDCS
--- NOTE | 2020-09-12 14:15 | ECHOS ---
STRESS ECHOCARDIOGRAM LUMASON: - Vial INDICATIONS: Chest pain. MEDICATIONS: BASELINE HEART RATE: 68 BASELINE BLOOD PRESSURE: 161/90 MAXIMUM HEART RATE: 151 MAXIMUM BLOOD PRESSURE: 176/72 85% MPHR: 145 100% MPHR: 170 METS: 11.7 MAXIMUM STAGE REACHED: 4 TOTAL EXERCISE TIME: 10:00 CLINICAL INFORMATION: STRESS DATA: Heart rate 68, pressure is 161/90 mmHg. The patient exercised on the treadmill according to Tip protocol for a total of 10 minutes and achieved 11.7 METS. Max heart rate was 151. The patient achieved 88% of maximum predicted heart rate. Maximum blood pressure was 176/72 mmHg. Clinically, the patient did not have any symptoms of chest pain or chest discomfort during the testing or on recovery and the EKG did not show any significant ST or T-wave abnormalities concerning for ischemia. Analysis on echocardiogram images from parasternal long axis view, parasternal short axis view, apical 4 chamber and apical 2 chambers were obtained as the baseline images, at the peak of the heart rate as well as on recovery and the echocardiogram images showed good augmentation in the left ventricular systolic function. CONCLUSION: 1. Excellent exercise tolerance. 2. Normal EKG in response to exercise. 3. Normal echocardiogram in response to exercise. MMODL / IJN: [id number] /
--- NOTE | 2020-09-12 14:51 | P.DS ---
Providers Date of admission: 09/12/20 08:39 Attending physician: Bao Lanza Consults: 09/11/20 09:33 Consult Physician Routine Consulting Provider: Linda Bazzi Consult Reason/Comments: cp Do you want consulting provider notified?: Yes Primary care physician: Bao Lanza Hospital Course: This is discharge summary on a 49-year-old female patient admitted for chest pain. We are also concerned about coronavirus issues. But the patient is now stable. The patient has been cleared by cardiology with stress testing and will be discharged in stable condition to follow-up with me in 2-3 days. Patient Condition at Discharge: Stable Plan - Discharge Summary Discharge Rx Participant: No New Discharge Prescriptions: New Aspirin 325 mg PO DAILY tab Losartan [Cozaar] 100 mg PO DAILY #30 tab Atorvastatin [Lipitor] 40 mg PO HS #30 tab Metoprolol Tartrate [Lopressor] 25 mg PO BID #60 tab Continue Losartan Potassium [Cozaar] 100 mg PO DAILY Ibuprofen [Motrin Ib] 800 mg PO Q6H PRN PRN Reason: Pain Acetaminophen/Diphenhydramine [Tylenol PM 500-25mg] 2 tab PO HS PRN PRN Reason: Pain Acetaminophen Tab [Tylenol] 1,000 mg PO Q6HR PRN PRN Reason: Pain Discharge Medication List Losartan Potassium [Cozaar] 100 mg PO DAILY 04/08/19 [History] Acetaminophen Tab [Tylenol] 1,000 mg PO Q6HR PRN 09/10/20 [History] Acetaminophen/Diphenhydramine [Tylenol PM 500-25mg] 2 tab PO HS PRN 09/10/20 [History] Ibuprofen [Motrin Ib] 800 mg PO Q6H PRN 09/10/20 [History] Aspirin 325 mg PO DAILY tab 09/12/20 [Rx] Atorvastatin [Lipitor] 40 mg PO HS #30 tab 09/12/20 [Rx] Losartan [Cozaar] 100 mg PO DAILY #30 tab 09/12/20 [Rx] Metoprolol Tartrate [Lopressor] 25 mg PO BID #60 tab 09/12/20 [Rx] Follow up Appointment(s)/Referral(s): Bao Lanza MD [Primary Care Provider] - 1-2 days Patient Instructions/Handouts: Chest Pain (DC) Discharge Disposition: HOME SELF-CARE
== END 2020-09-12 15:52 | disposition home or self-care (01) | DRG 313 ==
LOC: EC 10:18 → 1SOBS 12:55 → OBSVTOIN 09-12 08:39
PROVIDERS: ADMIT Family Medicine; ATTEND Family Medicine
DX: R07.89 Other chest pain (principal); E78.5 Hyperlipidemia, unspecified; F17.210 Nicotine dependence, cigarettes, uncomplicated; F32.9 Major depressive disorder, single episode, unspecified; F41.9 Anxiety disorder, unspecified; I10 Essential (primary) hypertension; M48.00 Spinal stenosis, site unspecified; Z20.828 Contact with and (suspected) exposure to other viral communicable diseases; G43.909 Migraine, unspecified, not intractable, without status migrainosus; K21.9 Gastro-esophageal reflux disease without esophagitis; R00.0 Tachycardia, unspecified; Z79.899 Other long term (current) drug therapy; Z87.11 Personal history of peptic ulcer disease; Z86.73 Personal history of transient ischemic attack (TIA), and cerebral infarction without residual deficits; Z88.7 Allergy status to serum and vaccine; Z88.8 Allergy status to other drugs, medicaments and biological substances; Z87.19 Personal history of other diseases of the digestive system; Z90.49 Acquired absence of other specified parts of digestive tract; Z87.01 Personal history of pneumonia (recurrent); Z98.890 Other specified postprocedural states; Z82.49 Family history of ischemic heart disease and other diseases of the circulatory system; Z80.9 Family history of malignant neoplasm, unspecified
CPT/HCPCS: 36415; 71045; 80053; 80061; 82728; 83605; 83615; 83735; 84145; 84443; 84484; 85025; 85379; 85610; 85730; 86140; 87040; 87635; 93005; 93306; 93351; 96361; 96374; 96375; 99285

== ENCOUNTER 2023-12-07 16:27 | Inpatient (IN) | payer MEDICAID ==
[2023-12-07] MEDS: HYDROmorphone 1 MG/ML 1 ML SYRINGE IVP STA ×2 (17:19→17:34)
[2023-12-07] MEDS: ONDANSETRON 4 MG/2 ML VIAL IVP STA (17:19)
--- NOTE | 2023-12-07 17:30 | ED ---
General Adult HPI - General Chief complaint: Extremity Injury, Lower Stated complaint: Broken leg Time Seen by Provider: 12/07/23 16:47 Source: patient, EMS Mode of arrival: EMS Limitations: no limitations - History of Present Illness Initial comments: 53-year-old female presenting to the ED with a chief complaint of left leg injury. Patient states that she was walking down the stairs with her dogs and due to her dogs being in the way lost her footing and slid down 5 stairs. Reports that when she went to the bottom of the stairs she felt her left leg snap. Denies head injury at this time. Patient is not on blood thinners. Patient notes no other injuries at this time. No other complaints. - Related Data Home Medications Medication Instructions Recorded Confirmed Losartan Potassium [Cozaar] 100 mg PO DAILY 04/08/19 09/10/20 Acetaminophen Tab [Tylenol] 1,000 mg PO Q6HR PRN 09/10/20 09/10/20 Acetaminophen/Diphenhydramine 2 tab PO HS PRN 09/10/20 09/10/20 [Tylenol PM 500-25mg] Ibuprofen [Motrin Ib] 800 mg PO Q6H PRN 09/10/20 09/10/20 Previous Rx's Medication Instructions Recorded Aspirin 325 mg PO DAILY tab 09/12/20 Atorvastatin [Lipitor] 40 mg PO HS #30 tab 09/12/20 Losartan [Cozaar] 100 mg PO DAILY #30 tab 09/12/20 Metoprolol Tartrate [Lopressor] 25 mg PO BID #60 tab 09/12/20 Allergies Allergy/AdvReac Type Severity Reaction Status Date / Time Tetanus Vaccines and Toxoid Allergy Severe Anaphylaxis Verified 09/10/20 11:47 [Tetanus Vaccines & Toxoid] amlodipine [From Norvasc] Allergy hypertension, Verified 09/10/20 11:47 high heart rate methyldopa [From Aldomet] Allergy effected Verified 09/10/20 11:47 liver methyldopate HCl Allergy effected Verified 09/10/20 11:47 [From Aldomet] liver valsartan Allergy Chest Pain Verified 09/10/20 11:47 lisinopril AdvReac Cough Verified 09/10/20 11:47 Review of Systems ROS Statement: Those systems with pertinent positive or pertinent negative responses have been documented in the HPI. ROS Other: All systems not noted in ROS Statement are negative. Past Medical History Past Medical History: CVA/TIA, Hypertension, Liver Disease, Musculoskeletal Disorder, Pneumonia Additional Past Medical History / Comment(s): Hx Migraines, occ palpitations, hx gastric ulcer, gallstones, pancreatitis, autoimmune hepatitis. lacunar stroke noted on scan. Spinal stenosis, 2 herniated discs. History of Any Multi-Drug Resistant Organisms: None Reported Past Surgical History: Breast Surgery, Cholecystectomy Additional Past Surgical History / Comment(s): Exploratory laparoscopy, liver biopsy, Breast Augmentation, PAIN CLINIC PROCEDURES Past Anesthesia/Blood Transfusion Reactions: Motion Sickness Past Psychological History: Anxiety, Depression Smoking Status: Current every day smoker Past Alcohol Use History: Occasional Past Drug Use History: None Reported - Past Family History Mother Family Medical History: Cancer General Exam Limitations: physical limitation General appearance: alert, in distress Eye exam: Present: normal appearance Neck exam: Present: normal inspection Respiratory exam: Present: normal lung sounds bilaterally Cardiovascular Exam: Present: regular rate, normal rhythm GI/Abdominal exam: Present: soft Extremities exam: Present: other (Patient has an obvious deformity at the distal left tibia. Strength and sensation intact distally. DP/PT pulses intact.) Neurological exam: Present: alert, oriented X3 Course Vital Signs 12/07/23 16:39 Temperature 98.0 F Pulse Rate 71 Respiratory 18 Rate Blood Pressure 137/86 O2 Sat by Pulse 98 Oximetry Medical Decision Making - Medical Decision Making Was pt. sent in by a medical professional or institution (VIRGIL Foster, SEISMIC PROSPECTING OBSERVER, urgent care, hospital, or care home...) When possible be specific @ -No Did you speak to anyone other than the patient for history (EMS, parent, family, police, friend...)? What history was obtained from this source @ -No Did you review nursing and triage notes (agree or disagree)? Why? @ -I reviewed and agree with nursing and triage notes Were old charts reviewed (outside hosp., previous admission, EMS record, old EKG, old radiological studies, urgent care reports/EKG's, care home records)? Report findings @ -No old charts were reviewed Differential Diagnosis (chest pain, altered mental status, abdominal pain women, abdominal pain men, vaginal bleeding, weakness, fever, dyspnea, syncope, headache, dizziness, GI bleed, back pain, seizure, CVA, palpatations, mental health, musculoskeletal)? @ -Differential Musculoskeletal Muscular strain, contusion, ligament sprain, fracture, arthritis, septic arthritis, bursitis, cellulitis, muscle spasm, nerve compression, DVT, arterial occlusion, herpes zoster, electrolyte abnormality, tumor.... This is not meant to be in all inclusive list EKG interpreted by me (3pts min.). @ -Pending X-rays interpreted by me (1pt min.). @ -X-ray of the ankle and tib-fib interpreted by me showing acute spiral fracture of the left tibial diaphysis and comminuted left fibula metadiaphyseal region fracture CT interpreted by me (1pt min.). @ -None done U/S interpreted by me (1pt. min.). @ -None done What testing was considered but not performed or refused? (CT, X-rays, U/S, labs)? Why? @ -None What meds were considered but not given or refused? Why? @ -None Did you discuss the management of the patient with other professionals (professionals i.e. , PA, SEISMIC PROSPECTING OBSERVER, lab, RT, psych nurse, geriatric social worker, paper novelty maker, teacher, morals squad police officer, patient case manager)? Give summary @ -Case discussed with Dr. Chance of orthopedic surgery. Recommends placement of well-padded splint, admission and n.p.o. after midnight for upcoming surgery. Was smoking cessation discussed for >3mins.? @ -No Was critical care preformed (if so, how long)? @ -No Were there social determinants of health that impacted care today? How? (Homelessness, low income, unemployed, alcoholism, drug addiction, transportation, low edu. Level, literacy, decrease access to med. care, snf, rehab)? @ -No Was there de-escalation of care discussed even if they declined (Discuss DNR or withdrawal of care, Hospice)? DNR status @ -No What co-morbidities impacted this encounter? (DM, HTN, Smoking, COPD, CAD, Cancer, CVA, ARF, Chemo, Hep., AIDS, mental health diagnosis, sleep apnea, morbid obesity)? @ -None Was patient admitted / discharged? Hospital course, mention meds given and route, prescriptions, significant lab abnormalities, going to OR and other pertinent info. @ -Admission 53-year-old female presenting to the ED status post mechanical slip and fall down the stairs. Imaging shows fracture of the left tib-fib. This was splinted. Case discussed with orthopedics on-call who recommended admission with consult to [facility] for presurgical clearance. Plan of care discussed with patient who is in agreement. Undiagnosed new problem with uncertain prognosis? @ -No Drug Therapy requiring intensive monitoring for toxicity (Heparin, Nitro, Insulin, Cardizem)? @ -No Were any procedures done? @ -Yes, splint placement Diagnosis/symptom? @ -Left tib-fib fracture Acute, or Chronic, or Acute on Chronic? @ -Acute Uncomplicated (without systemic symptoms) or Complicated (systemic symptoms)? @ -Uncomplicated Side effects of treatment? @ -No Exacerbation, Progression, or Severe Exacerbation? @ -No Poses a threat to life or bodily function? How? (Chest pain, [place], [place], pneumonia, PE, COPD, DKA, ARF, appy, cholecystitis, CVA, Diverticulitis, Homicidal, Suicidal, threat to staff... and all critical care pts) @ -Unlikely Disposition Clinical Impression: Tibia/fibula fracture Disposition: ADMITTED IP TO THIS HOSP Condition: Good Referrals: Gómez Selby DO [Primary Care Provider] - 1-2 days Time of Disposition: 18:07
[2023-12-07] MEDS: KETOROLAC 15 MG/ML 1 ML VIAL IVP STA (18:18)
[2023-12-07] MEDS: ACETAMINOPHEN TAB 500 MG TAB PO STA (18:21)
[2023-12-07] MEDS: LORazepam 2 MG/ML INJ IV STA (18:28)
--- NOTE | 2023-12-07 18:45 | XR ---
EXAMINATION TYPE: XR ankle limited LT, XR tibia fibula LT DATE OF EXAM: 12/07/2023 5:57 PM CLINICAL INDICATION:Female, 53 years old with history of r/o fx; PHH COMPARISON: None TECHNIQUE: XR ankle limited LT, XR tibia fibula LT; ankle is imaged in frontal, lateral and oblique projections. Was evaluated in frontal lateral views. FINDINGS: Acute spiral fracture of the left tibial diaphysis and comminuted left fibula metadiaphyseal region f racture. There is posterior displacement of the tibia with shortening up to 19 mm as well as posterio r displacement of the fibula. The remainder of the osseous structures appear intact. No radiopaque fo reign bodies. No additional fractures. No obvious extension to the joint. IMPRESSION: Acute spiral fracture of the left tibial diaphysis and comminuted left fibula metadiaphyseal region f racture.
[2023-12-07] MEDS ORDERED: NALOXONE 0.4 MG/ML 1 ML VIAL IV PRN (19:16)
[2023-12-07] MEDS ORDERED: ONDANSETRON 4 MG/2 ML VIAL IVP PRN (19:16)
[2023-12-07 20:05] LABS: Basophils % (A) 1 %; Eosinophils # (A) 0.1 k/uL (0-0.7); Eosinophils % (A) 2 %; HCT 36.6 % (34.0-46.0); HGB 12.5 gm/dL (11.4-16.0); Lymphocytes # (A) 1.3 k/uL (1.0-4.8); Lymphocytes % (A) 16 %; MCH 29.8 pg (25.0-35.0); MCHC 34.1 g/dL (31.0-37.0); MCV 87.4 fL (80.0-100.0); Mean Platelet Volume 7.4; Monocytes # (A) 0.3 k/uL (0-1.0); Monocytes % (A) 4 %; Neutrophils # (A) 6.2 k/uL (1.3-7.7); Neutrophils % (A) 77 %; Platelet Count 315 k/uL (150-450); RBC 4.18 m/uL (3.80-5.40); RDW 12.9 % (11.5-15.5); WBC 8.1 k/uL (3.8-10.6)
[2023-12-07 20:17] LABS: ALT 26 U/L (4-34); AST 50 U/L (14-36); African American GFR (CKD) >90 (>60 ml/min/1.73 sqM); Albumin 3.8 g/dL (3.5-5.0); Alkaline Phosphatase 109 U/L (38-126); Anion Gap 6 mmol/L; Blood Urea Nitrogen 23 mg/dL (7-17); Calcium 8.4 mg/dL (8.4-10.2); Carbon Dioxide 22 mmol/L (22-30); Chloride 112 mmol/L (98-107); Glucose 146 mg/dL (74-99); Non-African American GFR(CKD) 84 (>60 ml/min/1.73 sqM); Potassium 4.4 mmol/L (3.5-5.1); Sodium 140 mmol/L (137-145); Total Bilirubin 0.4 mg/dL (0.2-1.3); Total Protein 5.9 g/dL (6.3-8.2)
[2023-12-07 20:42] LABS: INR 0.9 (<1.2); Prothrombin Time 10.5 sec (10.0-12.5)
[2023-12-07] MEDS: HYDROmorphone 1 MG/ML 1 ML SYRINGE IVP PRN (21:35)
[2023-12-07 21:38] LABS: Partial Thromboplastin Time 20.9 sec (22.0-30.0)
[2023-12-07] MEDS: SODIUM CHLORIDE 0.9% 1,000 ML IV SCH (21:59)
[2023-12-07] MEDS: HYDROmorphone 0.5 MG/0.5 ML SYRINGE IVP PRN (23:01)
[2023-12-08] MEDS: KETOROLAC 15 MG/ML 1 ML VIAL IVP STA (06:30)
[2023-12-08] MEDS: HYDROmorphone 0.5 MG/0.5 ML SYRINGE IVP STA (07:59)
--- NOTE | 2023-12-08 08:42 | P.HPOR ---
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 According to the patient she was getting ready for work last night when she lost her balance and fell down the stairs. She had immediate pain and obvious deformity in her left leg. EMS was called and the patient was brought to the emergency department where x-rays showed a displaced distal third tibia fracture and a comminuted lateral malleolus fracture. She was placed in a splint and admitted under my care. This morning the patient is complaining of pain in her left leg. She has no other complaints. She states that she smokes 1 pack of cigarettes a day. Past Medical History Past Medical History: CVA/TIA, Hypertension, Liver Disease, Musculoskeletal Disorder, Pneumonia Additional Past Medical History / Comment(s): Hx Migraines, occ palpitations, hx gastric ulcer, gallstones, pancreatitis, autoimmune hepatitis. lacunar stroke noted on scan. Spinal stenosis, 2 herniated discs. History of Any Multi-Drug Resistant Organisms: None Reported Past Surgical History: Breast Surgery, Cholecystectomy Additional Past Surgical History / Comment(s): Exploratory laparoscopy, liver biopsy, Breast Augmentation, PAIN CLINIC PROCEDURES Past Anesthesia/Blood Transfusion Reactions: Motion Sickness Past Psychological History: Anxiety, Depression Smoking Status: Current every day smoker Past Alcohol Use History: Occasional Additional Past Alcohol Use History / Comment(s): 10 cig/day, attempting to quit, has smoked on/ off since 15 Past Drug Use History: None Reported - Past Family History Mother Family Medical History: Cancer Medications and Allergies Home Medications Medication Instructions Recorded Confirmed Type Losartan Potassium [Cozaar] 100 mg PO DAILY 04/08/19 12/07/23 History Cetirizine HCl [Zyrtec] 10 mg PO DAILY 12/07/23 12/07/23 History Cholecalciferol [Vitamin D3 (25 25 mcg PO DAILY 12/07/23 12/07/23 History Mcg = 1000 Iu)] Ibuprofen/Diphenhydramine Cit 2 tab PO HS 12/07/23 12/07/23 History [Motrin Pm Caplet] Metoprolol Succinate [Metoprolol 25 mg PO DAILY 12/07/23 12/07/23 History Succinate ER] Rosuvastatin [Crestor] 20 mg PO DAILY 12/07/23 12/07/23 History Venlafaxine HCl ER [Effexor XR] 75 mg PO HS 12/07/23 12/07/23 History buPROPion [Wellbutrin] 75 mg PO DAILY 12/07/23 12/07/23 History Allergies Allergy/AdvReac Type Severity Reaction Status Date / Time Tetanus Vaccines and Toxoid Allergy Severe Anaphylaxis Verified 12/07/23 19:52 [Tetanus Vaccines & Toxoid] amlodipine [From Norvasc] Allergy hypertension, Verified 12/07/23 19:52 high heart rate methyldopa [From Aldomet] Allergy effected Verified 12/07/23 19:52 liver methyldopate HCl Allergy effected Verified 12/07/23 19:52 [From Aldomet] liver valsartan Allergy Chest Pain Verified 12/07/23 19:52 lisinopril AdvReac Cough Verified 12/07/23 19:52 Physical Examination The patient is resting in her bed. She is in mild distress secondary to pain but is alert and able to answer questions. Her head is normocephalic and atraumatic. She demonstrates nonlabored breathing with symmetric chest expansion. Her abdomen is nonobese. Her cervical spine is nontender. Her bilateral upper extremities and right lower extremity are without deformity. A focused exam of the left lower extremity was conducted. On inspection there is a short-leg splint over the left leg. She has no tenderness over the hip or knee. The compartments felt at the proximal leg underneath the splint are soft. The tips of her toes are warm and well perfused with brisk capillary refill. There is no pain with passive range of motion of the toes. She is able to actively plantarflex and dorsiflex her toes. Results X-rays of the left ankle and left tibia and fibula show a displaced short oblique distal third diaphyseal tibia fracture and a comminuted lateral malleolus fracture with large anterior butterfly component. - Labs Labs: Abnormal Lab Results - Last 24 Hours (Table) 12/07/23 12/07/23 Range/Units 19:51 19:51 APTT 20.9 L (22.0-30.0) sec Chloride 112 H (98-107) mmol/L BUN 23 H (7-17) mg/dL Glucose 146 H (74-99) mg/dL AST 50 H (14-36) U/L Total Protein 5.9 L (6.3-8.2) g/dL H & H 12/07/23 Range/Units 19:51 Hgb 12.5 (11.4-16.0) gm/dL Hct 36.6 (34.0-46.0) % Coagulation 12/07/23 Range/Units 19:51 INR 0.9 (<1.2) Result Diagrams: 12/07/23 19:51 12/07/23 19:51 Assessment and Plan Assessment: Closed left distal third tibia and displaced lateral malleolus fracture Current 1 pack per day cigarette smoker Plan: I discussed the patient's fracture and treatment options. My recommendation was to proceed with a tibial intramedullary nail through suprapatellar approach later this morning. If there is minimal swelling we will also fix her distal fibula fracture, but discussed that if there is significant swelling given her history of smoking we may elect to stage this and come back later date once her soft tissue swelling resolves. We discussed the potential risks and competitions of surgery at length. The patient understands that she is at an elevated risk of having a complication particularly delayed wound healing, infection, and nonunion given her cigarette smoking. I strongly encouraged her to quit smoking to help lower this risk. Internal medicine is been consulted for preoperative clearance and perioperative medical management. The patient is to remain nonweightbearing on the left leg and ice and elevate until surgery later this afternoon. Time with Patient: Greater than 30
[2023-12-08] MEDS ORDERED: HYDROmorphone PCA 5 MG/25 ML SYRINGE IV PRN (10:02)
--- NOTE | 2023-12-08 10:05 | P.CONS ---
History of Present Illness - Reason for Consult Consult date: 12/08/23 - History of Present Illness 53 year old F with PMH of CVA, HTN, HLD, autoimmune hepatitis, Anxiety and Depression presents to the ED. Presents after losing her footing and falling down the stairs. No syncope or lightheadedness. Currently reports 8/10 severity LLE pain. XR showed acute spiral fracture left tibia diaphysis and comminuted left fibula metadiaphyseal fracture. [facility] has been consulted for surgical clearance and medical management of this patient. History of CVA at 30 and 31 while due to elevated BP which led to residual effects now resolved. Smokes 1 PPD since the age of 15. No EtOH or illicit drug use. No history of CAD or IA. Works as a nurse at [employer]. Prior to the fall, no issues with ADLs and IADLs. Able to walk and climb flight of stairs without difficulties. Able to do light and moderate housework without difficulties. Denies any exertional chest pain or SOB. Underwent stress test in 2019 which was negative. Other workup in the ED consisted of the following: Vital signs BP 137/84, HR 94, RR 16, 95% on RA. CBC unremarkable. Coag panel APTT 20.9. CMP Cl 112, BUN 23, glu 146, AST 50, T. protein 5.9. EKG NSR. General: non toxic, no distress, appears at stated age Derm: warm, dry Head: atraumatic, normocephalic Eyes: EOMI, no lid lag, anicteric sclera Cardiovascular: S1S2 tachy, no murmur Lungs: CTA bilateral, no rhonchi, no rales , no accessory muscle use Ext: no gross muscle atrophy, no edema, no contractures, LLE casted Neuro: no focal neuro deficits Psych: Alert, oriented, appropriate affect Based on my assessment of this patient, this patient meets a high complexity level of care. Patient has a acute diagnosis of tib-fib fracture which poses a threat to life or bodily function. Pre-operative clearance: Patient has high functional status. NSQIP scoring shows above risk for serious complications, PNA, cardiac complications, UTI, renal fa ilure, , discharge to SNF and sepsis which was discussed with the patient. She is medically optimized and has no relative contraindications for surgery. Smoker: Patient is encouraged to quit. Nicotine patch is offered. History of CVA Hypertension: Metoprolol 25 mg PO QD. Losartan 100 mg PO QD. Dyslipidemia: Crestor 20 mg PO QD. Autoimmune hepatitis: Monitor LFTs. Anxiety and Depression: Bupropion 75 mg PO QD. Effexor 75 mg PO QHS. CODE STATUS: FULL CODE. DVT Prophylaxis: Lovenox SQ GI Prophylaxis: Protonix Designated medical POA if patient is not able to make medical decisions for themselves: Son Manuel and Daughter Mayra. I have reviewed the following lifestyle consultant notes: Ortho surgery note. I have reviewed the results of the following tests: As above. I have ordered the following tests: CBC and BMP for tomorrow morning. I have discussed the care of this patient with the following independent historian: I have independently interpreted the following test below: EKG. I have discussed the management of this patient with the following physician: Past Medical History Past Medical History: CVA/TIA, Hypertension, Liver Disease, Musculoskeletal Disorder, Pneumonia Additional Past Medical History / Comment(s): Hx Migraines, occ palpitations, hx gastric ulcer, gallstones, pancreatitis, autoimmune hepatitis. lacunar stroke noted on scan. Spinal stenosis, 2 herniated discs. History of Any Multi-Drug Resistant Organisms: None Reported Past Surgical History: Breast Surgery, Cholecystectomy Additional Past Surgical History / Comment(s): Exploratory laparoscopy, liver biopsy, Breast Augmentation, PAIN CLINIC PROCEDURES Past Anesthesia/Blood Transfusion Reactions: Motion Sickness Past Psychological History: Anxiety, Depression Smoking Status: Current every day smoker Past Alcohol Use History: Occasional Additional Past Alcohol Use History / Comment(s): 10 cig/day, attempting to quit, has smoked on/ off since 15 Past Drug Use History: None Reported - Past Family History Mother Family Medical History: Cancer Medications and Allergies Home Medications Medication Instructions Recorded Confirmed Type Losartan Potassium [Cozaar] 100 mg PO DAILY 04/08/19 12/07/23 History Cetirizine HCl [Zyrtec] 10 mg PO DAILY 12/07/23 12/07/23 History Cholecalciferol [Vitamin D3 (25 25 mcg PO DAILY 12/07/23 12/07/23 History Mcg = 1000 Iu)] Ibuprofen/Diphenhydramine Cit 2 tab PO HS 12/07/23 12/07/23 History [Motrin Pm Caplet] Metoprolol Succinate [Metoprolol 25 mg PO DAILY 12/07/23 12/07/23 History Succinate ER] Rosuvastatin [Crestor] 20 mg PO DAILY 12/07/23 12/07/23 History Venlafaxine HCl ER [Effexor XR] 75 mg PO HS 12/07/23 12/07/23 History buPROPion [Wellbutrin] 75 mg PO DAILY 12/07/23 12/07/23 History Allergies Allergy/AdvReac Type Severity Reaction Status Date / Time Tetanus Vaccines and Toxoid Allergy Severe Anaphylaxis Verified 12/07/23 19:52 [Tetanus Vaccines & Toxoid] amlodipine [From Norvasc] Allergy hypertension, Verified 12/07/23 19:52 high heart rate methyldopa [From Aldomet] Allergy effected Verified 12/07/23 19:52 liver methyldopate HCl Allergy effected Verified 12/07/23 19:52 [From Aldomet] liver valsartan Allergy Chest Pain Verified 12/07/23 19:52 lisinopril AdvReac Cough Verified 12/07/23 19:52 Physical Exam Vitals: Vital Signs Temp Pulse Pulse Resp BP BP BP 12/08/23 08:00 94 16 12/08/23 07:00 98.3 F 94 16 137/84 12/08/23 02:00 98.2 F 80 16 136/80 12/07/23 22:17 97.7 F 83 16 137/82 12/07/23 21:39 98.2 F 82 18 130/84 12/07/23 19:51 98.2 F 68 18 127/91 12/07/23 16:39 98.0 F 71 18 137/86 Pulse Ox 12/08/23 08:00 12/08/23 07:00 95 12/08/23 02:00 96 12/07/23 22:17 97 12/07/23 21:39 98 12/07/23 19:51 12/07/23 16:39 98 Intake and Output 12/07/23 12/08/23 12/08/23 22:59 06:59 14:59 Output Total 400 Balance -400 Output: Urine 400 Other: Voiding Method External Catheter External Catheter Weight 78.018 kg Results CBC & Chem 7: 12/07/23 19:51 12/07/23 19:51 Labs: Abnormal Lab Results - Last 24 Hours (Table) 12/07/23 12/07/23 Range/Units 19:51 19:51 APTT 20.9 L (22.0-30.0) sec Chloride 112 H (98-107) mmol/L BUN 23 H (7-17) mg/dL Glucose 146 H (74-99) mg/dL AST 50 H (14-36) U/L Total Protein 5.9 L (6.3-8.2) g/dL
[2023-12-08] MEDS: LACTATED RINGERS 1,000 ML IV ONE ×2 (11:15→13:58)
[2023-12-08] MEDS: ONDANSETRON 4 MG/2 ML VIAL IVP ONE ×2 (11:30→14:54)
[2023-12-08] MEDS: DEXAMETHASONE SOD PHOSPHATE 4 MG/ML 1 ML VIAL IVP ONE (11:30)
[2023-12-08] MEDS: FAMOTIDINE 20 MG/2 ML VIAL IVP ONE (11:30)
[2023-12-08] MEDS ORDERED: IPRATROPIUM-ALBUTEROL 3 ML NEB ONE (11:33)
[2023-12-08] MEDS: IPRATROPIUM 0.5 MG/2.5 ML NEBU INHALATION ONE (11:37)
[2023-12-08] MEDS: fentaNYL (PF) 50 MCG/1 ML VIAL IVP ONE ×2 (11:38→11:48)
[2023-12-08] MEDS ORDERED: NEOSTIGMINE 1 MG/ML 10 ML VIAL ONE (12:19)
[2023-12-08] MEDS ORDERED: SUCCINYLCHOLINE CHLORIDE 200 MG/10 ML VIAL IV ONE (12:19)
[2023-12-08] MEDS ORDERED: KETAMINE HCL IN 0.9 % NACL 50 MG/5 ML SYRINGE ONE (12:19)
[2023-12-08] MEDS ORDERED: ROCURONIUM 10 MG/ML (5 ML VIAL) IV ONE (12:19)
[2023-12-08] MEDS ORDERED: MIDAZOLAM 2 MG/2 ML VIAL ONE (12:19)
[2023-12-08] MEDS ORDERED: LIDOCAINE 1% INJ 10MG/ML (20 ML MDV) ONE (12:19)
[2023-12-08] MEDS ORDERED: KETOROLAC 15 MG/ML 1 ML VIAL ONE (12:19)
[2023-12-08] MEDS ORDERED: PROPOFOL 10 MG/ML 20 ML VIAL IV ONE (12:19)
[2023-12-08] MEDS ORDERED: HYDROmorphone (PF) 1 MG/ML ONE (12:19)
[2023-12-08] MEDS ORDERED: fentaNYL (PF) 50 MCG/ML 2 ML AMP ONE (12:19)
[2023-12-08] MEDS ORDERED: GLYCOPYRROLATE 0.2 MG/ML 2 ML VIAL ONE (12:19)
[2023-12-08] MEDS: SODIUM CHLORIDE 0.9% 100 ML with ceFAZolin 2,000 MG IV ONE (12:40)
--- NOTE | 2023-12-08 14:33 | FL ---
EXAMINATION TYPE: FL guidance operating room, XR tibia fibula LT Intraoperative/procedural fluoroscop ic services were provided. Total fluoroscopy time is 3 minutes 3 seconds with a total of 18 submitted images to PACS. Please see the operative/procedural note for further details. DAP: 3.0255 Gycm2
[2023-12-08] MEDS ORDERED: HYDROmorphone 0.5 MG/0.5 ML SYRINGE IVP PRN ×2 (14:46)
[2023-12-08] MEDS ORDERED: HYDROmorphone 1 MG/ML 1 ML SYRINGE IVP PRN (14:46)
[2023-12-08] MEDS ORDERED: hydrOXYzine pamoate 25 MG CAP PO PRN (14:46)
[2023-12-08] MEDS: MEPERIDINE 50 MG/ML SYRINGE IVP ONE (14:54)
[2023-12-08] MEDS: HYDROmorphone 0.5 MG/0.5 ML SYRINGE IVP ONE ×2 (14:54→15:37)
--- NOTE | 2023-12-08 15:07 | P.OP ---
Date of Procedure: 12/08/23 Preoperative Diagnosis: 1. Closed left distal third tibia fracture 2. Closed comminuted left distal fibula fracture 3. Current one pack per day cigarette smoker Postoperative Diagnosis: Same Procedure(s) Performed: 1. Left distal third tibia fracture intramedullary nail 2. Open reduction internal fixation left distal fibula fracture 3. 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 She was brought to our ER where x-rays showed a displaced distal third tibia and fibula fracture. She was admitted under my care. I met with the patient preoperatively and recommended intramedullary nail fixation of her tibia and open reduction and internal fixation of her fibula fracture. She was cleared for surgery by internal medicine. We discussed the potential risks and complications of the proposed surgery including but not limited to risks from anesthesia, superficial infection, deep infection, delayed wound healing, nonunion, malunion, hardware failure, malreduction of the ankle mortise, refracture, damage to local blood vessels or nerves, continued or worsened pain, need for further surgery, symptomatic hardware, DVT, PE, other medical comp lications, and inability to regain preinjury level of function, and possibly loss of life or limb. The patient voiced her understanding of these potential complications and also acknowledge that other less common complications are possible. She also understands that she is at an elevated risk of having a complication given her cigarette smoking. I strongly encouraged her to quit. She provided both her verbal and written consent to go forward with the proposed surgery. Description of Procedure: The patient was identified in preoperative holding and the correct leg was marked with my initials. I reviewed the consent form with the patient and all of her questions were answered. The patient was then brought back to the operating room by anesthesia. She was given a general anesthetic and preoperative antibiotics on the rmathias. Once she was under anesthesia she was carefully transferred onto the operating room table. A tourniquet was applied to the proximal aspect of the left thigh. A bump was placed under her left buttock internally rotating the leg to neutral. A ramp was placed under the left leg to facilitate imaging. The splint was taken down and there did not appear to be any open wounds and there was only mild swelling. A nonsterile drape was applied to the leg and then a presurgical scrub was performed with a chlorhexidine scrub brush. The left leg was then prepped and draped in the standard sterile fashion. Prior to starting surgery timeout was performed identifying the correct patient, operative extremity, and procedure. A tourni quet was applied but was not utilized during the procedure. I began by addressing the tibia fracture. The level of the fracture was identified with fluoroscopy and stab incisions were made medially and laterally with a scalpel. The tines of a large [id number] reduction clamp were placed along the medial and lateral cortex of the proximal and distal shaft. While an customer marketing assistant pulled longitudinal traction I used a reduction clamp to anatomically reduce the tibia fracture. The reduction was verified with fluoroscopy. A longitudinal incision was then made at the superior pole of the patella. Skin incision was made with a scalpel and dissection was carried down carefully through the subcutaneous tissue. The quadriceps tendon was identified and split longitudinally in line with the skin incision. The trocar and sleeve for suprapatellar nail was then carefully inserted from the superior pole of the patella, underneath the patella to the anterior aspect of the proximal tibia. A 3.2 mm guide pin was placed using fluoroscopy for the start site. One suture AP of the knee was obtained the guidewire was placed just medial to the lateral tibial spine on the AP view and at the anterior shelf of the tibia on the lateral view. An opening reamer was used. A long ball-tipped guidewire was then advanced down to the physeal scar. The length of the nail was measured. I then reamed in half millimeter increments. A 9 mm reamer generated chatter so I reamed up to a 10.5 mm reamer. An appropriate length 9 mm diameter nail was then dispensed. The nail was carefully tapped down over the ball-tipped guidewire until it was fully seated. The position of the nail and reduction of the fracture were verified with fluoroscopy. I then placed 2 locking screws proximally through the targeting arm and stab incisions from medial to lateral. 2 distal interlocking screws were placed using the perfect lovelock freehand technique. Final fluoroscopic images were taken. The targeting arm was removed and all incisions were carefully closed. Attention was then turned to the fibula. Due to the level of the fracture and the amount of displacement I elected to proceed with open reduction and internal fixation of the fibula fracture. A straight lateral incision to the fibula was created with a scalpel and dissection was carried down carefully to the subcutaneous tissue with tenotomy scissors. The superficial peroneal nerve was identified proximally in the wound and carefully retracted. The periosteum over the fibula distally and the fascia over the peroneal muscles proximally was sharply incised. The fracture was then easily identified. There were several areas of comminution and multiple large butterfly fragments. Due to the patient's poor bone quality, size of her fibula and multiple fracture lines I was unable to place any interfragmentary lag screws. Several strategically positioned [id number] reduction clamps were placed to hold the main fractures reduced and the reduction was verified with fluoroscopy. A 12 hole one third tubular plate was then used as a bridge construct with 3 screws proximally and 3 screws distally. Final fluoroscopic images including a manual external rotation stress x-ray were obtained and showed no widening of the ankle mortise or syndesmosis. The lateral wound was then thoroughly irrigated and closed in layers. Sterile dressings were applied followed by a well-padded bulky Alexander splint with the ankle neutral. The splints were taken down, the patient was transferred off of the operating room table to a gurney and extubated, and she was brought to recovery having tolerated the procedure well. Diana Cabrera PA-C was required as a skilled customer marketing assistant due to the complexity of the surgery for patient positioning, retraction, reduction of fracture, placement of implants, closure of wounds, and application of dressing. PLAN: The patient is going to be admitted overnight for pain control. She will receive 2 doses of postoperative antibiotics. She will receive aspirin 81 mg twice a day for DVT prophylaxis. Internal medicine for perioperative medical assistance. We'll plan on discharging the patient home when she is comfortable. She will need follow-up in the office in 2 weeks for splint removal and nonweightbearing x-rays of the ankle and tibia and fibula.
[2023-12-08] MEDS: SCOPOLAMINE 1 MG/72 HR PATCH TRANSDERM ONE (15:36)
[2023-12-08] MEDS: diphenhydrAMINE 50 MG/ML 1 ML VIAL IVP ONE (15:37)
[2023-12-08 16:21] VITALS: RESP 16
[2023-12-08] MEDS: LACTATED RINGERS 1,000 ML IV SCH (16:21)
[2023-12-08] MEDS: HYDROcodone/APAP 5-325MG 1 EACH TAB PO PRN (17:51)
[2023-12-08] MEDS: LOSARTAN 50 MG TAB PO SCH (18:14)
[2023-12-08] MEDS: METOPROLOL SUCCINATE (ER) 25 MG TAB.ER.24H PO SCH (18:14)
[2023-12-08] MEDS: TEMAZEPAM 15 MG CAP PO PRN (20:45)
[2023-12-08] MEDS: diphenhydrAMINE 25 MG CAP PO PRN (20:45)
[2023-12-08] MEDS: ASPIRIN 81 MG PO SCH (20:45)
[2023-12-08] MEDS: HYDROmorphone PCA 10 MG/50 ML BAG IV PRN (21:21)
[2023-12-08] MEDS: VENLAFAXINE HCL ER 75 MG CAP PO SCH (21:21)
[2023-12-09] MEDS: HYDROcodone/APAP 5-325MG 1 EACH TAB PO PRN (05:52)
[2023-12-09 06:52] LABS: HCT 24.6 % (34.0-46.0); MCH 29.5 pg (25.0-35.0); MCHC 33.1 g/dL (31.0-37.0); MCV 89.3 fL (80.0-100.0); Mean Platelet Volume 8.3; Platelet Count 239 k/uL (150-450); RBC 2.76 m/uL (3.80-5.40); WBC 7.1 k/uL (3.8-10.6)
[2023-12-09 06:54] LABS: HGB 8.2 gm/dL (11.4-16.0)
[2023-12-09 07:32] LABS: African American GFR (CKD) >90 (>60 ml/min/1.73 sqM); Anion Gap 3 mmol/L; Blood Urea Nitrogen 18 mg/dL (7-17); Calcium 7.9 mg/dL (8.4-10.2); Carbon Dioxide 23 mmol/L (22-30); Chloride 113 mmol/L (98-107); Glucose 99 mg/dL (74-99); Non-African American GFR(CKD) >90 (>60 ml/min/1.73 sqM); Potassium 4.2 mmol/L (3.5-5.1); Sodium 139 mmol/L (137-145)
--- NOTE | 2023-12-09 07:54 | P.PN ---
Subjective Patient is doing better this morning. Her pain is improved. Objective - Vital Signs Vital signs: Vital Signs Temp 98.5 F 12/09/23 06:31 Pulse 91 12/09/23 06:31 Resp 16 12/09/23 06:31 BP 100/65 12/09/23 06:31 Pulse Ox 95 12/09/23 06:31 FiO2 Intake & Output 12/08/23 12/09/23 12/09/23 18:59 06:59 18:59 Intake Total 1600 Output Total 450 Balance 1150 Intake: IV 1600 Output: Urine 250 Estimated Blood Loss 200 Other: Voiding Method External Catheter External Catheter # Voids 2 3 - Exam The patient is resting comfortably in her bed. She is alert and able to answer questions. On inspection of the left leg there is nontender dressing over the superior pole of the patella. The splint over her ankle is intact with no drainage or bleeding. The tips of her toes are warm and well-perfused brisk capillary refill. She is actively moving her toes. There is no pain with passive range of motion of the toes. - Labs CBC & Chem 7: 12/09/23 06:32 12/09/23 06:32 Labs: Abnormal Lab Results - Last 24 Hours (Table) 12/09/23 12/09/23 Range/Units 06:32 06:32 RBC 2.76 L (3.80-5.40) m/uL Hgb 8.2 L D (11.4-16.0) gm/dL Hct 24.6 L (34.0-46.0) % Chloride 113 H (98-107) mmol/L BUN 18 H (7-17) mg/dL Calcium 7.9 L (8.4-10.2) mg/dL Assessment and Plan Assessment: Postoperative day #1 status post left intramedullary tibial nail and open reduction internal fixation fibula Current 1 pack per day cigarette smoker Plan: 1. Nonweightbearing left lower extremity, ice and elevation, operative assistance and a walker or crutches 2. DVT prophylaxis with aspirin 81 mg twice a day 3. 2 doses postoperative antibiotics 4. Transition from IV to oral pain medications 5. Dispo: The patient will work with physical therapy and we'll attempt to transition off IV pain medications today. We'll anticipate discharge home tomorrow if she is comfortable and passes physical therapy.
[2023-12-09] MEDS: ENOXAPARIN 40 MG/0.4 ML SYRINGE SQ SCH (08:45)
[2023-12-09] MEDS: ATORVASTATIN 40 MG TAB PO SCH (08:46)
[2023-12-09] MEDS: buPROPion 75 MG TAB PO SCH (08:46)
[2023-12-09] MEDS: LORATADINE 10 MG TAB PO SCH (08:46)
[2023-12-09] MEDS ORDERED: LOSARTAN 50 MG TAB PO SCH (09:00)
[2023-12-09] MEDS ORDERED: METOPROLOL SUCCINATE (ER) 25 MG TAB.ER.24H PO SCH (09:00)
--- NOTE | 2023-12-09 11:27 | P.PN ---
Subjective Progress Note Date: 12/09/23 53 year old F with PMH of CVA, HTN, HLD, autoimmune hepatitis, Anxiety and Depression presents to the ED. Presents after losing her footing and falling down the stairs. No syncope or lightheadedness. Currently reports 8/10 severity LLE pain. XR showed acute spiral fracture left tibia diaphysis and comminuted left fibula metadiaphyseal fracture. [facility] has been consulted for surgical clearance and medical management of this patient. Other workup in the ED consisted of the following: Vital signs BP 137/84, HR 94, RR 16, 95% on RA. CBC unremarkable. Coag panel APTT 20.9. CMP Cl 112, BUN 23, glu 146, AST 50, T. protein 5.9. EKG NSR. Underwent IM nail of the tibia and ORIF fibula with Dr. Chance on 12/08. 12/09 Patient was seen and examined. Moderate pain in the LLE. CBC Hg 8.2, Hct 24.6. BMP Cl 113, BUN 18, Ca 7.9. General: non toxic, no distress, appears at stated age Derm: warm, dry Head: atraumatic, normocephalic Eyes: EOMI, no lid lag, anicteric sclera Cardiovascular: S1S2 tachy, no murmur Lungs: CTA bilateral, no rhonchi, no rales , no accessory muscle use Ext: no gross muscle atrophy, no edema, no contractures, LLE casted Neuro: no focal neuro deficits Psych: Alert, oriented, appropriate affect Based on my assessment of this patient, this patient meets a moderate complexity level of care. Patient has a acute diagnosis of tib-fib fracture which poses a threat to life or bodily function. Acute blood loss anemia: Expected result of surgery. Would recommend repeat CBC tomorrow morning to ensure uptrending Hg. Pre-operative clearance: Patient has high functional status. NSQIP scoring shows above risk for serious complications, PNA, cardiac complications, UTI, renal failure, , discharge to SNF and sepsis which was discussed with the patient. She is medically optimized and has no relative contraindications for surgery. Smoker: Patient is encouraged to quit. Nicotine patch is offered. History of CVA Hypertension: Metoprolol 25 mg PO QD. Losartan 100 mg PO QD. Dyslipidemia: Crestor 20 mg PO QD. Autoimmune hepatitis: Monitor LFTs. Anxiety and Depression: Bupropion 75 mg PO QD. Effexor 75 mg PO QHS. CODE STATUS: FULL CODE. DVT Prophylaxis: Lovenox SQ GI Prophylaxis: Protonix Designated medical POA if patient is not able to make medical decisions for themselves: Son Manuel and Daughter Mayra. I have reviewed the following telecom sales consultant notes: Ortho surgery note, operative note. I have reviewed the results of the following tests: CBC, BMP. I have ordered the following tests: CBC for tomorrow morning. I have discussed the care of this patient with the following independent historian: I have independently interpreted the following test below: I have discussed the management of this patient with the following physician: Objective - Vital Signs Vital signs: Vital Signs Temp 98.7 F 12/09/23 08:23 Pulse 90 12/09/23 10:15 Resp 16 12/09/23 06:31 BP 94/52 12/09/23 10:15 Pulse Ox 94 L 12/09/23 08:23 FiO2 Intake & Output 12/08/23 12/09/23 12/09/23 18:59 06:59 18:59 Intake Total 1600 Output Total 450 Balance 1150 Intake: IV 1600 Output: Urine 250 Estimated Blood Loss 200 Other: Voiding Method External Catheter External Catheter Toilet External Catheter # Voids 2 3 - Labs CBC & Chem 7: 12/09/23 06:32 12/09/23 06:32 Labs: Abnormal Lab Results - Last 24 Hours (Table) 12/09/23 12/09/23 Range/Units 06:32 06:32 RBC 2.76 L (3.80-5.40) m/uL Hgb 8.2 L D (11.4-16.0) gm/dL Hct 24.6 L (34.0-46.0) % Chloride 113 H (98-107) mmol/L BUN 18 H (7-17) mg/dL Calcium 7.9 L (8.4-10.2) mg/dL
[2023-12-09] MEDS: oxyCODONE-APAP 7.5-325MG 1 EACH TAB PO PRN (14:29)
[2023-12-09] MEDS: HYDROmorphone 1 MG/ML 1 ML SYRINGE IVP STA (16:34)
[2023-12-09] MEDS: KETOROLAC 15 MG/ML 1 ML VIAL IVP SCH (18:10)
[2023-12-09] MEDS: oxyCODONE-APAP 10-325MG 1 EACH TAB PO SCH (18:11)
[2023-12-09] MEDS: HYDROmorphone 1 MG/ML 1 ML SYRINGE IVP PRN (18:53)
[2023-12-09] MEDS: SENNOSIDES-DOCUSATE SODIUM 1 EACH TAB PO PRN (21:10)
[2023-12-10 06:06] LABS: HGB 8.1 gm/dL (11.4-16.0); MCH 30.1 pg (25.0-35.0); MCHC 33.5 g/dL (31.0-37.0); MCV 89.9 fL (80.0-100.0); Mean Platelet Volume 7.4; Platelet Count 268 k/uL (150-450); RBC 2.67 m/uL (3.80-5.40); RDW 13.1 % (11.5-15.5)
--- NOTE | 2023-12-10 11:24 | P.PN ---
Subjective Progress Note Date: 12/10/23 53 year old F with PMH of CVA, HTN, HLD, autoimmune hepatitis, Anxiety and Depression presents to the ED. Presents after losing her footing and falling down the stairs. No syncope or lightheadedness. Currently reports 8/10 severity LLE pain. XR showed acute spiral fracture left tibia diaphysis and comminuted left fibula metadiaphyseal fracture. [facility] [place] [facility] has been consulted for surgical clearance and medical management of this patient. Other workup in the ED consisted of the following: Vital signs BP 137/84, HR 94, RR 16, 95% on RA. CBC unremarkable. Coag panel APTT 20.9. CMP Cl 112, BUN 23, glu 146, AST 50, T. protein 5.9. EKG NSR. Underwent IM nail of the tibia and ORIF fibula with Dr. Chance on 12/08. 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 Pain regimen was changed to Percocet 10 mg Q6H and Toradol 15 mg IV Q6H scheduled along with Dilaudid 1 mg IV Q2H PRN and Flexeril 5 mg PO TID PRN. 12/09 Patient was seen and examined. She reports significantly improved pain in her left lower extremity. Working well with PT. CBC Hg 8.1 Hct 24. General: non toxic, no distress, appears at stated age Derm: warm, dry Head: atraumatic, normocephalic Eyes: EOMI, no lid lag, anicteric sclera Cardiovascular: S1S2 tachy, no murmur Lungs: CTA bilateral, no rhonchi, no rales , no accessory muscle use Ext: no gross muscle atrophy, no edema, no contractures, LLE casted Neuro: no focal neuro deficits Psych: Alert, oriented, appropriate affect Based on my assessment of this patient, this patient meets a moderate complexity level of care. Patient has a acute diagnosis of tib-fib fracture which poses a threat to life or bodily function. Acute blood loss anemia: Expected result of surgery. Start FeSO4 325 mg PO BID with meals. Pre-operative clearance: Patient has high functional status. NSQIP scoring shows above risk for serious complications, PNA, cardiac complications, UTI, renal failure, , discharge to SNF and sepsis which was discussed with the patient. She is medically optimized and has no relative contraindications for surgery. Smoker: Patient is encouraged to quit. Nicotine patch is offered. History of CVA Hypertension: Metoprolol 25 mg PO QD. Losartan 100 mg PO QD. Dyslipidemia: Crestor 20 mg PO QD. Autoimmune hepatitis: Monitor LFTs. Anxiety and Depression: Bupropion 75 mg PO QD. Effexor 75 mg PO QHS. Patient is medically stable. Would recommend repeat CBC in 3 days to be followed up with PCP if she is discharged today. CODE STATUS: FULL CODE. DVT Prophylaxis: Lovenox SQ GI Prophylaxis: Protonix Designated medical POA if patient is not able to make medical decisions for themselves: Son Manuel and Daughter Mayra. I have reviewed the following party plan sales consultant notes: Ortho surgery note. I have reviewed the results of the following tests: CBC. I have ordered the following tests: CBC. I have discussed the care of this patient with the following independent historian: Discussed with JUAN LUIS Sky. I have independently interpreted the following test below: I have discussed the management of this patient with the following physician: Objective - Vital Signs Vital signs: Vital Signs Temp 97.7 F 12/10/23 07:21 Pulse 86 12/10/23 07:21 Resp 16 12/10/23 07:21 BP 121/63 12/10/23 07:21 Pulse Ox 95 12/10/23 07:21 FiO2 Intake & Output 12/09/23 12/10/23 12/10/23 18:59 06:59 18:59 Intake Total 118 Output Total 600 Balance -482 Intake: Oral 118 Output: Urine 600 Other: Voiding Method Toilet Toilet Toilet External Catheter External Catheter # Voids 2 2 - Labs CBC & Chem 7: 12/10/23 05:40 12/09/23 06:32 Labs: Abnormal Lab Results - Last 24 Hours (Table) 12/10/23 Range/Units 05:40 RBC 2.67 L (3.80-5.40) m/uL Hgb 8.1 L (11.4-16.0) gm/dL Hct 24.0 L (34.0-46.0) %
--- NOTE | 2023-12-10 12:42 | P.PN ---
Subjective Pain better controlled today. Objective - Vital Signs Vital signs: Vital Signs Temp 97.7 F 12/10/23 07:21 Pulse 86 12/10/23 07:21 Resp 16 12/10/23 07:21 BP 121/63 12/10/23 07:21 Pulse Ox 95 12/10/23 07:21 FiO2 Intake & Output 12/09/23 12/10/23 12/10/23 18:59 06:59 18:59 Intake Total 118 Output Total 600 Balance -482 Intake: Oral 118 Output: Urine 600 Other: Voiding Method Toilet Toilet Toilet External Catheter External Catheter # Voids 2 2 - Exam Patient is alert and oriented. She is in minimal distress. The splint on her left leg is intact. Her toes are warm and well perfused with brisk capillary refill. She moves her toes up and down. - Labs CBC & Chem 7: 12/10/23 05:40 12/09/23 06:32 Labs: Abnormal Lab Results - Last 24 Hours (Table) 12/10/23 Range/Units 05:40 RBC 2.67 L (3.80-5.40) m/uL Hgb 8.1 L (11.4-16.0) gm/dL Hct 24.0 L (34.0-46.0) % Assessment and Plan Assessment: Postoperative day #2 status post left tibial intramedullary nail and fibula open reduction internal fixation Plan: Patient is going to continue working on transitioning from IV to oral pain medication. We'll plan on just giving Percocet this afternoon and wean her off of the IV Dilaudid. She'll plan on discharging home tomorrow if she is comfortable.
[2023-12-10] MEDS ORDERED: oxyCODONE-APAP 7.5-325MG 1 EACH TAB PO PRN (16:48)
[2023-12-10] MEDS: FERROUS SULFATE 325 MG TAB PO SCH (18:38)
[2023-12-10] MEDS: oxyCODONE-APAP 7.5-325MG 1 EACH TAB PO PRN (18:39)
[2023-12-10] MEDS: CYCLOBENZAPRINE 5 MG TAB PO PRN (20:09)
[2023-12-11 06:44] LABS: HCT 22.2 % (34.0-46.0); HGB 7.5 gm/dL (11.4-16.0); MCH 30.1 pg (25.0-35.0); MCV 88.7 fL (80.0-100.0); Mean Platelet Volume 7.7; Platelet Count 260 k/uL (150-450); RDW 13.1 % (11.5-15.5); WBC 5.1 k/uL (3.8-10.6)
[2023-12-11 07:19] VITALS: BP 112/77; PULSE 85; TEMP 98
--- NOTE | 2023-12-11 07:46 | P.DS ---
Providers Date of admission: 12/07/23 18:50 Attending physician: Luis Chance Consults: 12/07/23 19:16 Consult Physician Urgent Consulting Provider: Brielle Marshall Consult Reason/Comments: Left tib fib fx surgical clearnace Do you want consulting provider notified?: Yes Primary care physician: G[facility]mez [facility] Course: The patient is a very pleasant 53-year-old female who is admitted under my care with a left tibia and distal fibular fracture. She was taken to the operating room this past Saturday were none Dictated surgery was performed. Following surgery she was transferred to the orthopedic floor. She received 2 doses of postoperative antibiotics. She was transitioned from IV to oral pain medication. She worked with physical therapy. Internal medicine assisted with her perioperative medical management. She was ultimately cleared for discharge home when her pain was controlled. Patient Condition at Discharge: Good Plan - Discharge Summary New Discharge Prescriptions: New Omeprazole 20 mg PO DAILY #30 tab Sennosides-Docusate Sodium [Senokot-S] 1 tab PO BID #60 tablet Aspirin [Adult Low Dose Aspirin EC] 81 mg PO BID #1 tab Ondansetron Odt [Zofran Odt] 4 mg PO Q8HR PRN #14 tab PRN Reason: Nausea Ferrous Sulfate [Iron (65 MG Elemental)] 325 mg PO BID-W/MEALS #60 tab oxyCODONE HCL/ACETAMINOPHEN [Percocet 7.5-325 mg] 1 - 2 tab PO Q6HR PRN #32 tab PRN Reason: Pain Continue Losartan Potassium [Cozaar] 100 mg PO DAILY Rosuvastatin [Crestor] 20 mg PO DAILY Cetirizine HCl [Zyrtec] 10 mg PO DAILY Venlafaxine HCl ER [Effexor XR] 75 mg PO HS buPROPion [Wellbutrin] 75 mg PO DAILY Metoprolol Succinate [Metoprolol Succinate ER] 25 mg PO DAILY Cholecalciferol [Vitamin D3 (25 Mcg = 1000 Iu)] 25 mcg PO DAILY Ibuprofen/Diphenhydramine Cit [Motrin Pm Caplet] 2 tab PO HS Discharge Medication List Losartan Potassium [Cozaar] 100 mg PO DAILY 04/08/19 [History] Cetirizine HCl [Zyrtec] 10 mg PO DAILY 12/07/23 [History] Cholecalciferol [Vitamin D3 (25 Mcg = 1000 Iu)] 25 mcg PO DAILY 12/07/23 [History] Ibuprofen/Diphenhydramine Cit [Motrin Pm Caplet] 2 tab PO HS 12/07/23 [History] Metoprolol Succinate [Metoprolol Succinate ER] 25 mg PO DAILY 12/07/23 [History] Rosuvastatin [Crestor] 20 mg PO DAILY 12/07/23 [History] Venlafaxine HCl ER [Effexor XR] 75 mg PO HS 12/07/23 [History] buPROPion [Wellbutrin] 75 mg PO DAILY 12/07/23 [History] Aspirin [Adult Low Dose Aspirin EC] 81 mg PO BID #1 tab 12/08/23 [Rx] Omeprazole 20 mg PO DAILY #30 tab 12/08/23 [Rx] Ondansetron Odt [Zofran Odt] 4 mg PO Q8HR PRN #14 tab 12/08/23 [Rx] Sennosides-Docusate Sodium [Senokot-S] 1 tab PO BID #60 tablet 12/08/23 [Rx] Ferrous Sulfate [Iron (65 MG Elemental)] 325 mg PO BID-W/MEALS #60 tab 12/10/23 [Rx] oxyCODONE HCL/ACETAMINOPHEN [Percocet 7.5-325 mg] 1 - 2 tab PO Q6HR PRN #32 tab 12/10/23 [Rx] Follow up Appointment(s)/Referral(s): [facility] [NON-STAFF] - As Needed [facility], [NON-STAFF] - As Needed Gómez Selby DO [Primary Care Provider] - 1-2 days Luis Chance MD [Medical Doctor] - 2 Weeks Activity/Diet/Wound Care/Special Instructions: Non-weight bearing on your left lower extremity with a walker. Keep splint intact until f/u visit. Report any problems to our office. [phone]. Discharge Disposition: HOME WITH HOME HEALTH SERVICES
== END 2023-12-11 11:30 | disposition home health service (06) | DRG 493 ==
LOC: EC 16:27 → 6NMEDSUR 18:50 → OBSVTOIN 18:50 → 6NMEDSUR 20:26
PROVIDERS: ADMIT Orthopaedic Surgery; ATTEND Orthopaedic Surgery
PROC: 0QSH06Z Reposition Left Tibia with Intramedullary Internal Fixation Device, Open Approach (ICD-10-PCS; 2023-12-08)
PROC: 0QSK06Z Reposition Left Fibula with Intramedullary Internal Fixation Device, Open Approach (ICD-10-PCS; principal; 2023-12-08 13:00)
DX: S82.302A Unspecified fracture of lower end of left tibia, initial encounter for closed fracture (principal); D62 Acute posthemorrhagic anemia; S82.242A Displaced spiral fracture of shaft of left tibia, initial encounter for closed fracture; K75.4 Autoimmune hepatitis; I10 Essential (primary) hypertension; F32.A Depression, unspecified; F17.210 Nicotine dependence, cigarettes, uncomplicated; S82.452A Displaced comminuted fracture of shaft of left fibula, initial encounter for closed fracture; E78.5 Hyperlipidemia, unspecified; F41.9 Anxiety disorder, unspecified; W10.9XXA Fall (on) (from) unspecified stairs and steps, initial encounter; Z79.82 Long term (current) use of aspirin; Z88.7 Allergy status to serum and vaccine; Z88.8 Allergy status to other drugs, medicaments and biological substances; Z86.73 Personal history of transient ischemic attack (TIA), and cerebral infarction without residual deficits; Z87.11 Personal history of peptic ulcer disease; Z79.899 Other long term (current) drug therapy
CPT/HCPCS: 80048; 80053; 85025; 85027; 85610; 85730; 86850; 86900; 86901; 93005; 96374; 96375; 96376; 99285

== ENCOUNTER → 2023-12-13 | Outpatient (CLI) | payer MEDICAID ==
[2023-12-13 18:16] LABS: Basophils # (A) 0.03 X 10*3/uL (0.00-0.10); Basophils % (A) 0.5 %; Eosinophils # (A) 0.33 X 10*3/uL (0.04-0.35); HCT 22.5 % (37.2-46.3); HGB 7.5 g/dL (12.0-15.0); Lymphocytes % (A) 22.8 %; MCH 29.6 pg (27.0-32.0); MCHC 33.3 g/dL (32.0-37.0); MCV 88.9 FL (80.0-97.0); Mean Platelet Volume 9.3 FL (9.5-12.2); Monocytes # (A) 0.48 X 10*3/uL (0.20-1.00); Monocytes % (A) 7.3 %; NRBC Per 100 WBC 0 X 10*3/uL (0.00-0.01); Neutrophils # (A) 4.22 X 10*3/uL (1.80-7.70); Neutrophils % (A) 64.1 %; Platelet Count 347 X 10*3/uL (140-440); RBC 2.53 X 10*6/uL (4.10-5.20); RDW 13.2 % (11.5-14.5); WBC 6.58 X 10*3/uL (4.50-10.00)
== END | disposition home or self-care (01) ==
LOC: LABWHC1 13:24
PROVIDERS: ATTEND Internal Medicine
DX: D64.9 Anemia, unspecified (principal)
CPT/HCPCS: 36415; 85025

== ENCOUNTER → 2024-05-12 | Outpatient (CLI) | payer MEDICAID | END | disposition home or self-care (01) | LOC: LABWHC1 14:03 | PROVIDERS: ATTEND Orthopaedic Surgery | DX: Z48.89 Encounter for other specified surgical aftercare (principal); S82.62XD Displaced fracture of lateral malleolus of left fibula, subsequent encounter for closed fracture with routine healing; S82.302D Unspecified fracture of lower end of left tibia, subsequent encounter for closed fracture with routine healing; X58.XXXD Exposure to other specified factors, subsequent encounter; F17.210 Nicotine dependence, cigarettes, uncomplicated | CPT/HCPCS: 36415; 85652; 86140 ==